=== PATIENT | male | born 1970 | race Hispanic/Latino ===

== ENCOUNTER 2017-11-24 18:56 | Inpatient (IN) | payer MEDICARE ==
[~2017-11-24] VITALS: Ht 167.6 cm; Wt 83.2 kg
[~2017-11-24 18:56] MED LIST: AMIO200T5 PO; ASPI-1181 PO; CALC667C10 PO; CLOP75TA14 PO; ENOX30DI4 SQ; FOLI1TAB61 PO; FURO20TA4 PO; HYDR28CR TP; INSU100V12 SQ; MERO1PIG IV; METO25TA6 PO; MIDO10TA PO; OXYB5TAB10 PO; PANT40SU PO; PRAM0.5T12 PO; SEVE800T7 PO; TRAZ-185 PO; [UNRECOGNIZED DRUG - CODE] IV
[2017-11-24 19:39] LABS: BASOPHILS % (AUTO) 0.5 % (0.0-5.0); HEMATOCRIT 40.5 % (42-54); LYMPHOCYTES % (AUTO) 1.4 % (21.0-51.0); MEAN CORPUSCULAR HEMOGLOBIN 29.6 pg (27.0-33.0); MEAN CORPUSCULAR HGB CONC 33.5 g/dL (32.0-36.0); MEAN CORPUSCULAR VOLUME 88.4 fL (79-99); MONOCYTES % (AUTO) 3.1 % (3.0-13.0); PLATELET COUNT (AUTO) 139 K/uL (130-400); RED BLOOD CELL COUNT(AUTO) 4.58 MIL/uL (4.50-6.20); RED CELL DISTRIBUTION WIDTH 16.4 % (11.0-15.5); WHITE BLOOD COUNT (AUTO) 18.2 K/uL (4.8-10.8)
[2017-11-24 19:51] LABS: CREATININE 7.6 mg/dL (0.5-1.5); POTASSIUM 4.1 mmol/L (3.5-5.1)
[2017-11-24 20:02] LABS: INR 1.14 (0.85-1.15); PARTIAL THROMBOPLASTIN TIME 30.3 SEC (26.3-35.5); PROTHROMBIN TIME 11.9 SEC (9.6-11.6)
[2017-11-24 20:05] LABS: ALBUMIN 3.1 g/dL (3.5-5.0); CREATINE KINASE MB 1.6 ng/mL (0.5-3.6); TOTAL PROTEIN, SERUM 7.3 g/dL (6.0-8.3); TROPONIN I 0.08 ng/mL (0.00-0.06)
[2017-11-24] MEDS ORDERED: VANCOMYCIN 1GM+NS 250ML 250 ML IV ONE (20:11)
[2017-11-24] MEDS ORDERED: ZOSYN 3.375GM+NS 50ML 50 ML IV ONE (20:11)
[2017-11-24] MEDS ORDERED: MIDODRINE HCL 5 MG TABLET ONE (22:02)
[2017-11-24] MEDS ORDERED: SODIUM CHLORIDE 0.9% 250 ML IV ONE (22:03)
[2017-11-24] MEDS ORDERED: ACETAMINOPHEN ELIXIR 325 MG/10.15ML UDCUP ONE (22:26)
[2017-11-24] MEDS ORDERED: SODIUM CHLORIDE 0.9% 1000ML 1,000 ML IV ONE (22:26)
[2017-11-24] MEDS ORDERED: ACETAMINOPHEN 325 MG TAB ONE (22:29)
[2017-11-24] MEDS ORDERED: VANCOMYCIN PROTOCOL PER PHARMACY IV SCH (23:30)
[2017-11-24] MEDS ORDERED: SODIUM CHLORIDE 0.9% 250 ML IV SCH (23:30)
[2017-11-24] MEDS ORDERED: ACETAMINOPHEN 325 MG TAB PO PRN (23:30)
[2017-11-24] MEDS ORDERED: ONDANSETRON HCL MDV 20ML 2 MG/ML VIAL IVP PRN (23:30)
[2017-11-24] MEDS ORDERED: MIDODRINE HCL 5 MG TABLET PO SCH (23:30)
[2017-11-24 23:40] VITALS: BP 101/40
[2017-11-24] MEDS: SODIUM CHLORIDE 0.9% 1000ML 1,000 ML IV SCH (23:55)
[2017-11-25] MEDS ORDERED: MIDO5TAB PO (00:15)
[2017-11-25] MEDS ORDERED: ATOR10 PO (00:15)
[2017-11-25 03:00] VITALS: BP 100/63
[2017-11-25 06:22] LABS: HEMATOCRIT 35.7 % (42-54); MEAN CORPUSCULAR HEMOGLOBIN 29.9 pg (27.0-33.0); MEAN CORPUSCULAR HGB CONC 33.9 g/dL (32.0-36.0); NUCLEATED RED BLOOD CELLS 0.1 % (0.0-0.19); PLATELET COUNT (AUTO) 128 K/uL (130-400); RED BLOOD CELL COUNT(AUTO) 4.05 MIL/uL (4.50-6.20); RED CELL DISTRIBUTION WIDTH 16.6 % (11.0-15.5); WHITE BLOOD COUNT (AUTO) 19.5 K/uL (4.8-10.8)
[2017-11-25] MEDS ORDERED: COMPOUND IV REFRIGERATED 1 EACH IVSOLN MISC PRN (06:30)
[2017-11-25 07:33] LABS: ERYTHROCYTE SEDIMENTATION RATE 20 MM/HR (0-15)
[2017-11-25 07:45] LABS: ALBUMIN 2.5 g/dL (3.5-5.0); BILIRUBIN,TOTAL 1.3 mg/dL (0.2-1.0); POTASSIUM 4.4 mmol/L (3.5-5.1); TOTAL PROTEIN, SERUM 6.3 g/dL (6.0-8.3)
[2017-11-25 07:51] LABS: CREATININE 8.5 mg/dL (0.5-1.5)
[2017-11-25 08:00] VITALS: BP 126/58
[2017-11-25] MEDS: ZOSYN 3.375GM+NS 50ML 50 ML IV SCH ×2 (08:54→21:19)
[2017-11-25] MEDS: FAMOTIDINE/PF 20 MG/2 ML VIAL IV SCH (08:54)
[2017-11-25] MEDS: HEPARIN SODIUM 5000UNIT/ML 1ML VIAL SQ SCH ×2 (09:14→21:27)
[2017-11-25 10:34] LABS: HIGH SENSITIVITY CRP 142.49 mg/L (0.0-3.0)
[2017-11-25 11:00] VITALS: BP_SYST 113; BP_SYST 128; BP_DIAS 53; BP_DIAS 64
[2017-11-25] MEDS: SODIUM CHLORIDE 0.9% 1000ML 1,000 ML IV SCH (13:15)
[2017-11-25 16:00] VITALS: BP 101/70
[2017-11-25 19:00] VITALS: BP 106/63
[2017-11-26 00:26] VITALS: BP 106/62
[2017-11-26 03:51] VITALS: BP 119/60
[2017-11-26 06:06] LABS: MAGNESIUM 2.2 mg/dL (1.80-2.40); PHOSPHORUS 8.6 mg/dL (2.5-4.9); POTASSIUM 5.4 mmol/L (3.5-5.1)
[2017-11-26 06:07] LABS: CREATININE 9.8 mg/dL (0.5-1.5)
[2017-11-26 06:08] LABS: MEAN CORPUSCULAR HEMOGLOBIN 29.5 pg (27.0-33.0); MEAN CORPUSCULAR HGB CONC 33.7 g/dL (32.0-36.0); MEAN CORPUSCULAR VOLUME 87.5 fL (79-99); NUCLEATED RED BLOOD CELLS 0.2 % (0.0-0.19); PLATELET COUNT (AUTO) 110 K/uL (130-400); RED BLOOD CELL COUNT(AUTO) 4.12 MIL/uL (4.50-6.20); RED CELL DISTRIBUTION WIDTH 16.6 % (11.0-15.5); WHITE BLOOD COUNT (AUTO) 13.9 K/uL (4.8-10.8)
[2017-11-26] MEDS: ZOSYN 3.375GM+NS 50ML 50 ML IV SCH ×2 (07:49→20:40)
[2017-11-26] MEDS: FAMOTIDINE/PF 20 MG/2 ML VIAL IV SCH (07:50)
[2017-11-26 08:00] VITALS: BP 118/57
[2017-11-26] MEDS: HEPARIN SODIUM 5000UNIT/ML 1ML VIAL SQ SCH ×2 (08:14→20:46)
[2017-11-26 11:00] VITALS: BP 111/69
[2017-11-26] MEDS ORDERED: 0.9% SODIUM CHLORIDE 250 ML IV BAG IV PRN (13:00)
[2017-11-26] MEDS ORDERED: SODIUM CHLORIDE 0.9% 1000ML 1,000 ML IV PRN (13:00)
[2017-11-26] MEDS ORDERED: MIDODRINE HCL 5 MG TABLET ONE (13:27)
[2017-11-26 16:00] VITALS: BP 114/35
[2017-11-26 19:39] VITALS: BP 98/56
[2017-11-26] MEDS ORDERED: VANCOMYCIN 1.25 GM in SODIUM CHLORIDE 0.9% 250 ML IV SCH (21:00)
[2017-11-27] VITALS (8 sets, daily range): BP systolic 92–169; BP diastolic 58–88
[2017-11-27 05:13] LABS: POTASSIUM 4.6 mmol/L (3.5-5.1)
[2017-11-27 05:14] LABS: HEMATOCRIT 35.2 % (42-54); MEAN CORPUSCULAR HEMOGLOBIN 30.6 pg (27.0-33.0); MEAN CORPUSCULAR HGB CONC 34.9 g/dL (32.0-36.0); MEAN CORPUSCULAR VOLUME 87.7 fL (79-99); NUCLEATED RED BLOOD CELLS 0.1 % (0.0-0.19); PLATELET COUNT (AUTO) 120 K/uL (130-400); RED BLOOD CELL COUNT(AUTO) 4.01 MIL/uL (4.50-6.20); RED CELL DISTRIBUTION WIDTH 16.5 % (11.0-15.5); WHITE BLOOD COUNT (AUTO) 9.2 K/uL (4.8-10.8)
[2017-11-27 05:41] LABS: BAND NEUTROPHILS % (MANUAL) 2 % (0-2); BASOPHILS % (MANUAL) 1 % (0-2); LYMPHOCYTES % (MANUAL) 6 % (22-44); MAN.DIFF COMMENT-IMPRESSION MANUAL DIFFERENTIAL; MONOCYTES % (MANUAL) 10 % (2-9); SEGMENTED NEUTROPHILS % 81 % (40-70)
[2017-11-27 05:43] LABS: PLATELET MORPHOLOGY COMMENT SLIGHTLY DECREASED
[2017-11-27] MEDS: FAMOTIDINE/PF 20 MG/2 ML VIAL IV SCH (08:49)
[2017-11-27] MEDS: HEPARIN SODIUM 5000UNIT/ML 1ML VIAL SQ SCH ×2 (08:49→21:39)
[2017-11-27] MEDS: ZOSYN 3.375GM+NS 50ML 50 ML IV SCH (08:49)
[2017-11-27] MEDS ORDERED: COMPOUND PO MISCELLANEOUS 1 EACH MISC MISC PRN ×2 (13:30→14:15)
[2017-11-27] MEDS: VANCOMYCIN 250MG/5ML ORAL SOLUTION 40ML PO SCH ×4 (14:32→21:36)
[2017-11-27] MEDS: PHARMACY COMMUNICATION MISC SCH (21:36)
[2017-11-28] MEDS: VANCOMYCIN 250MG/5ML ORAL SOLUTION 40ML PO SCH ×6 (03:38→14:09)
[2017-11-28] MEDS: PHARMACY COMMUNICATION MISC SCH (03:45)
[2017-11-28 04:03] VITALS: BP 101/76
[2017-11-28 05:14] LABS: BASOPHILS % (AUTO) 0.9 % (0.0-5.0); EOSINOPHILS % (AUTO) 1.5 % (0.0-8.0); HEMATOCRIT 37.4 % (42-54); MEAN CORPUSCULAR HEMOGLOBIN 29.3 pg (27.0-33.0); MEAN CORPUSCULAR HGB CONC 33.5 g/dL (32.0-36.0); MEAN CORPUSCULAR VOLUME 87.6 fL (79-99); MONOCYTES % (AUTO) 11.2 % (3.0-13.0); NEUTROPHILS % (AUTO) 81.4 % (40.0-77.0); PLATELET COUNT (AUTO) 134 K/uL (130-400); RED BLOOD CELL COUNT(AUTO) 4.26 MIL/uL (4.50-6.20); RED CELL DISTRIBUTION WIDTH 16.5 % (11.0-15.5)
[2017-11-28 05:28] LABS: POTASSIUM 4.7 mmol/L (3.5-5.1)
[2017-11-28 05:32] LABS: CREATININE 10.5 mg/dL (0.5-1.5)
[2017-11-28 07:00] VITALS: BP 114/50
[2017-11-28] MEDS ORDERED: 0.9% SODIUM CHLORIDE 250 ML IV BAG IV PRN (07:15)
[2017-11-28] MEDS ORDERED: SODIUM CHLORIDE 0.9% 1000ML 1,000 ML IV PRN (07:15)
[2017-11-28] MEDS ORDERED: ALBUMIN (HUMAN) 25% 100 ML IV PRN (07:15)
[2017-11-28] MEDS: FAMOTIDINE/PF 20 MG/2 ML VIAL IV SCH (08:42)
[2017-11-28] MEDS: HEPARIN SODIUM 5000UNIT/ML 1ML VIAL SQ SCH (08:43)
[2017-11-28 12:00] VITALS: BP 99/70
== END 2017-11-28 15:25 | disposition home or self-care (01) | DRG 871 ==
LOC: EDH 18:56 → EDHIP 21:46 → 3BH 23:14
PROVIDERS: ADMIT Internal Medicine Nephrology; ATTEND Internal Medicine Nephrology
PROC: 5A1D70Z Performance of Urinary Filtration, Intermittent, Less than 6 Hours Per Day (ICD-10-PCS; principal; 2017-11-26)
PROC: 5A1D70Z Performance of Urinary Filtration, Intermittent, Less than 6 Hours Per Day (ICD-10-PCS; 2017-11-28)
DX: A41.9 Sepsis, unspecified organism (principal); N18.6 End stage renal disease; L03.115 Cellulitis of right lower limb; A04.72 Enterocolitis due to Clostridium difficile, not specified as recurrent; I13.2 Hypertensive heart and chronic kidney disease with heart failure and with stage 5 chronic kidney disease, or end stage renal disease; D64.9 Anemia, unspecified; E11.21 Type 2 diabetes mellitus with diabetic nephropathy; E11.22 Type 2 diabetes mellitus with diabetic chronic kidney disease; E11.51 Type 2 diabetes mellitus with diabetic peripheral angiopathy without gangrene; E78.5 Hyperlipidemia, unspecified; I25.10 Atherosclerotic heart disease of native coronary artery without angina pectoris; I25.5 Ischemic cardiomyopathy; I50.9 Heart failure, unspecified; Z99.2 Dependence on renal dialysis; Z95.1 Presence of aortocoronary bypass graft; Z91.19 Patient's noncompliance with other medical treatment and regimen; Z89.512 Acquired absence of left leg below knee; Z87.891 Personal history of nicotine dependence; Z83.3 Family history of diabetes mellitus; Z82.49 Family history of ischemic heart disease and other diseases of the circulatory system
CPT/HCPCS: 36415; 71045; 80048; 80053; 80202; 82550; 82553; 82948; 83605; 83735; 83874; 84100; 84484; 85025; 85027; 85610; 85651; 85730; 86141; 87040; 87507; 87633; 90935; 93005; 93971; J1644; J2543; J3370; J3490; J7030; P9046

== ENCOUNTER 2018-03-28 13:00 | Outpatient (CLI) | payer MEDICARE ==
[~2018-03-28 13:00] MED LIST changes: +ATOR10 PO; -CALC667C10 PO; -CLOP75TA14 PO; -ENOX30DI4 SQ; -FOLI1TAB61 PO; -FURO20TA4 PO; -HYDR28CR TP; -INSU100V12 SQ; -MERO1PIG IV; -METO25TA6 PO; -MIDO10TA PO; +MIDO5TAB PO; -PANT40SU PO; -[UNRECOGNIZED DRUG - CODE] IV
[2018-03-28 14:09] VITALS: BP 127/52
== END 2018-03-28 14:18 | disposition home or self-care (01) ==
LOC: WHH 13:00
PROVIDERS: ATTEND Family Medicine
DX: E11.621 Type 2 diabetes mellitus with foot ulcer (principal); L97.511 Non-pressure chronic ulcer of other part of right foot limited to breakdown of skin; I25.10 Atherosclerotic heart disease of native coronary artery without angina pectoris; E11.22 Type 2 diabetes mellitus with diabetic chronic kidney disease; I13.2 Hypertensive heart and chronic kidney disease with heart failure and with stage 5 chronic kidney disease, or end stage renal disease; N18.6 End stage renal disease; I50.9 Heart failure, unspecified; I89.0 Lymphedema, not elsewhere classified; E78.2 Mixed hyperlipidemia; I25.2 Old myocardial infarction; E11.69 Type 2 diabetes mellitus with other specified complication; M86.8X7 Other osteomyelitis, ankle and foot; M19.071 Primary osteoarthritis, right ankle and foot; E11.40 Type 2 diabetes mellitus with diabetic neuropathy, unspecified; E11.51 Type 2 diabetes mellitus with diabetic peripheral angiopathy without gangrene; E11.21 Type 2 diabetes mellitus with diabetic nephropathy; I87.2 Venous insufficiency (chronic) (peripheral); Z95.1 Presence of aortocoronary bypass graft; Z87.891 Personal history of nicotine dependence; Z89.512 Acquired absence of left leg below knee; Z79.899 Other long term (current) drug therapy; Z79.4 Long term (current) use of insulin; Z99.2 Dependence on renal dialysis
CPT/HCPCS: G0463

== ENCOUNTER 2018-06-01 11:17 | Inpatient (IN) | payer MEDICARE ==
[~2018-06-01] VITALS: Ht 167.6 cm; Wt 91.0 kg
[2018-06-01 11:55] LABS: BASOPHILS % (AUTO) 0.4 % (0.0-5.0); HEMATOCRIT 47.4 % (42-54); LYMPHOCYTES % (AUTO) 2.5 % (21.0-51.0); MEAN CORPUSCULAR HEMOGLOBIN 28.5 pg (27.0-33.0); MEAN CORPUSCULAR HGB CONC 32.6 g/dL (32.0-36.0); MEAN CORPUSCULAR VOLUME 87.4 fL (79-99); NEUTROPHILS % (AUTO) 85.1 % (40.0-77.0); PLATELET COUNT (AUTO) 148 K/uL (130-400); RED BLOOD CELL COUNT(AUTO) 5.43 MIL/uL (4.50-6.20); RED CELL DISTRIBUTION WIDTH 17.1 % (11.0-15.5); WHITE BLOOD COUNT (AUTO) 8.7 K/uL (4.8-10.8)
[2018-06-01 12:03] LABS: ALBUMIN 1.5 g/dL (3.5-5.0); BILIRUBIN,TOTAL 0.6 mg/dL (0.2-1.0); POTASSIUM 4.5 mmol/L (3.5-5.1); TOTAL PROTEIN, SERUM 5.4 g/dL (6.0-8.3)
[2018-06-01] MEDS ORDERED: ALBUTEROL SULFATE 0.083% 2.5 MG/3 ML INH IH ONE (12:10)
[2018-06-01 12:17] LABS: CREATININE 8.2 mg/dL (0.5-1.5)
[2018-06-01] MEDS ORDERED: ZOSYN 3.375GM+NS 50ML 50 ML IV ONE (13:11)
[2018-06-01] MEDS ORDERED: ACETAMINOPHEN 325 MG TAB PO PRN (15:00)
[2018-06-01] MEDS ORDERED: VANCOMYCIN 1GM+NS 250ML 250 ML IV SCH (15:30)
[2018-06-01] MEDS: SEVELAMER HCL 800 MG TABLET PO SCH (17:00)
[2018-06-01] MEDS: IPRATROPIUM/ALBUTEROL SULFATE 3 ML SOLUTION IH SCH ×2 (18:07→23:28)
[2018-06-01] MEDS ORDERED: MIDODRINE HCL 5 MG TABLET ONE (20:21)
[2018-06-01] MEDS: OXYBUTYNIN CHLORIDE 5 MG TABLET PO SCH (21:00)
[2018-06-01] MEDS ORDERED: PRAMIPEXOLE DI-HCL 0.25 MG TABLET PO PRN (21:00)
[2018-06-01] MEDS ORDERED: FAMOTIDINE 20MG TAB 20 MG TAB PO SCH (21:00)
[2018-06-01] MEDS: BENZONATATE 100 MG CAPSULE PO SCH (21:00)
[2018-06-01] MEDS: HEPARIN SODIUM 5000UNIT/ML 1ML VIAL SQ SCH (21:00)
[2018-06-01] MEDS: ZOSYN 3.375GM+NS 50ML 50 ML IV SCH (21:00)
[2018-06-01] MEDS ORDERED: MIDODRINE HCL 5 MG TABLET PO SCH ×2 (21:00)
[2018-06-01] MEDS: ATORVASTATIN CALCIUM 10 MG TABLET PO SCH (21:00)
[2018-06-01] MEDS ORDERED: ATORVASTATIN CALCIUM 10 MG TABLET ONE (21:24)
[2018-06-01] MEDS ORDERED: FAMOTIDINE 20MG TAB 20 MG TAB ONE (21:24)
[2018-06-01] MEDS ORDERED: HEPARIN SODIUM 5000UNIT/ML 1ML VIAL ONE (21:25)
[2018-06-01] MEDS ORDERED: BENZONATATE 100 MG CAPSULE PO ONE (21:25)
[2018-06-01] MEDS ORDERED: VANCOMYCIN 1GM+NS 250ML 250 ML IV ONE (21:25)
[2018-06-01 22:50] VITALS: BP 89/55
[2018-06-02 04:00] VITALS: BP 78/54
[2018-06-02 05:38] LABS: HEMATOCRIT 38.5 % (42-54); MEAN CORPUSCULAR HEMOGLOBIN 27.4 pg (27.0-33.0); MEAN CORPUSCULAR HGB CONC 31.8 g/dL (32.0-36.0); MEAN CORPUSCULAR VOLUME 86.1 fL (79-99); NUCLEATED RED BLOOD CELLS 0.1 % (0.0-0.19); PLATELET COUNT (AUTO) 125 K/uL (130-400); RED BLOOD CELL COUNT(AUTO) 4.47 MIL/uL (4.50-6.20); RED CELL DISTRIBUTION WIDTH 16.4 % (11.0-15.5); WHITE BLOOD COUNT (AUTO) 7.6 K/uL (4.8-10.8)
[2018-06-02 05:55] LABS: MAGNESIUM 2.3 mg/dL (1.80-2.40); PHOSPHORUS 8.9 mg/dL (2.5-4.9); URIC ACID 6.2 mg/dL (2.6-7.2)
[2018-06-02 05:57] LABS: CREATININE 9.1 mg/dL (0.5-1.5)
[2018-06-02] MEDS: IPRATROPIUM/ALBUTEROL SULFATE 3 ML SOLUTION IH SCH ×3 (06:43→23:35)
[2018-06-02 08:00] VITALS: BP 90/55
[2018-06-02] MEDS: SEVELAMER HCL 800 MG TABLET PO SCH ×3 (08:10→19:17)
[2018-06-02] MEDS: HEPARIN SODIUM 5000UNIT/ML 1ML VIAL SQ SCH ×2 (09:00→21:00)
[2018-06-02] MEDS: ASPIRIN 81 MG EC TAB PO SCH (09:33)
[2018-06-02] MEDS: MIDODRINE HCL 5 MG TABLET PO SCH ×3 (09:33→21:40)
[2018-06-02] MEDS: ZOSYN 3.375GM+NS 50ML 50 ML IV SCH ×2 (09:33→21:40)
[2018-06-02] MEDS: OXYBUTYNIN CHLORIDE 5 MG TABLET PO SCH ×3 (09:34→21:41)
[2018-06-02] MEDS: FOLIC ACID/VITAMIN B COMP W-C 1 MG CAPSULE PO SCH (09:34)
[2018-06-02] MEDS: BENZONATATE 100 MG CAPSULE PO SCH ×3 (09:34→21:00)
[2018-06-02] MEDS: AMIODARONE HCL 200 MG TABLET PO SCH (09:34)
[2018-06-02] MEDS: HYDROCODONE/ACETAMINOPHEN 5/325 MG TAB PO PRN (09:45)
[2018-06-02] MEDS ORDERED: SODIUM CHLORIDE 0.9% 1000ML 1,000 ML IV PRN (11:45)
[2018-06-02] MEDS ORDERED: 0.9% SODIUM CHLORIDE 250 ML IV BAG IV PRN (11:45)
[2018-06-02 12:00] VITALS: BP 80/44
[2018-06-02] MEDS: ALBUMIN (HUMAN) 25% 50 ML IV PRN ×2 (14:27→14:28)
[2018-06-02] MEDS: ALBUMIN (HUMAN) 25% 100 ML IV PRN (14:28)
[2018-06-02 16:00] VITALS: BP 83/51
[2018-06-02 19:10] LABS: TROPONIN I 1.9 ng/mL (0.00-0.06)
[2018-06-02 19:15] VITALS: BP 79/46
[2018-06-02 19:20] VITALS: BP 82/46
[2018-06-02] MEDS: ATORVASTATIN CALCIUM 10 MG TABLET PO SCH (21:41)
[2018-06-02 21:44] LABS: CREATININE 7.2 mg/dL (0.5-1.5); MAGNESIUM 2.3 mg/dL (1.80-2.40); POTASSIUM 4.3 mmol/L (3.5-5.1)
[2018-06-03 04:15] VITALS: BP 85/37
[2018-06-03 05:09] LABS: HEMATOCRIT 39.2 % (42-54); MEAN CORPUSCULAR HEMOGLOBIN 28.4 pg (27.0-33.0); MEAN CORPUSCULAR HGB CONC 32.8 g/dL (32.0-36.0); MEAN CORPUSCULAR VOLUME 86.6 fL (79-99); NUCLEATED RED BLOOD CELLS 0.2 % (0.0-0.19); PLATELET COUNT (AUTO) 147 K/uL (130-400); RED BLOOD CELL COUNT(AUTO) 4.53 MIL/uL (4.50-6.20); RED CELL DISTRIBUTION WIDTH 16.8 % (11.0-15.5); WHITE BLOOD COUNT (AUTO) 6.9 K/uL (4.8-10.8)
[2018-06-03 06:08] LABS: TROPONIN I 1.36 ng/mL (0.00-0.06)
[2018-06-03] MEDS: IPRATROPIUM/ALBUTEROL SULFATE 3 ML SOLUTION IH SCH ×4 (06:37→23:07)
[2018-06-03 07:12] LABS: CREATININE 7.8 mg/dL (0.5-1.5)
[2018-06-03 08:00] VITALS: BP 76/40
[2018-06-03] MEDS: HEPARIN SODIUM 5000UNIT/ML 1ML VIAL SQ SCH ×2 (09:00→21:00)
[2018-06-03] MEDS: ZOSYN 3.375GM+NS 50ML 50 ML IV SCH ×2 (09:02→21:05)
[2018-06-03] MEDS: FOLIC ACID/VITAMIN B COMP W-C 1 MG CAPSULE PO SCH (09:03)
[2018-06-03] MEDS: OXYBUTYNIN CHLORIDE 5 MG TABLET PO SCH ×3 (09:03→21:05)
[2018-06-03] MEDS: MIDODRINE HCL 5 MG TABLET PO SCH ×3 (09:03→21:05)
[2018-06-03] MEDS: AMIODARONE HCL 200 MG TABLET PO SCH (09:04)
[2018-06-03] MEDS: SEVELAMER HCL 800 MG TABLET PO SCH ×3 (09:04→17:00)
[2018-06-03] MEDS: HYDROCODONE/ACETAMINOPHEN 5/325 MG TAB PO PRN (09:05)
[2018-06-03] MEDS: ASPIRIN 81 MG EC TAB PO SCH (09:05)
[2018-06-03] MEDS: BENZONATATE 100 MG CAPSULE PO SCH ×3 (09:08→21:05)
[2018-06-03 12:00] VITALS: BP 87/43
[2018-06-03 13:03] LABS: TROPONIN I 1.4 ng/mL (0.00-0.06)
[2018-06-03 16:00] VITALS: BP 92/38
[2018-06-03] MEDS: VANCOMYCIN 1GM+NS 250ML 250 ML IV SCH (18:36)
[2018-06-03] MEDS: ALBUMIN (HUMAN) 25% 100 ML IV PRN ×2 (18:41→18:42)
[2018-06-03 19:00] VITALS: BP 97/50
[2018-06-03] MEDS: ATORVASTATIN CALCIUM 10 MG TABLET PO SCH (21:05)
[2018-06-03 23:45] VITALS: BP 97/54
[2018-06-04] VITALS (8 sets, daily range): BP systolic 85–97; BP diastolic 40–74
[2018-06-04 05:42] LABS: HEMATOCRIT 41.5 % (42-54); MEAN CORPUSCULAR HEMOGLOBIN 27.7 pg (27.0-33.0); MEAN CORPUSCULAR HGB CONC 31.9 g/dL (32.0-36.0); MEAN CORPUSCULAR VOLUME 86.7 fL (79-99); NUCLEATED RED BLOOD CELLS 0.1 % (0.0-0.19); PLATELET COUNT (AUTO) 121 K/uL (130-400); RED BLOOD CELL COUNT(AUTO) 4.79 MIL/uL (4.50-6.20); RED CELL DISTRIBUTION WIDTH 16.6 % (11.0-15.5); WHITE BLOOD COUNT (AUTO) 6.4 K/uL (4.8-10.8)
[2018-06-04 05:51] LABS: CREATININE 6.1 mg/dL (0.5-1.5); POTASSIUM 3.7 mmol/L (3.5-5.1)
[2018-06-04] MEDS: IPRATROPIUM/ALBUTEROL SULFATE 3 ML SOLUTION IH SCH ×4 (06:39→23:41)
[2018-06-04] MEDS: HEPARIN SODIUM 5000UNIT/ML 1ML VIAL SQ SCH ×2 (09:00→20:31)
[2018-06-04] MEDS: ZOSYN 3.375GM+NS 50ML 50 ML IV SCH ×2 (09:13→20:31)
[2018-06-04] MEDS: MIDODRINE HCL 5 MG TABLET PO SCH ×3 (09:14→20:30)
[2018-06-04] MEDS: FOLIC ACID/VITAMIN B COMP W-C 1 MG CAPSULE PO SCH (09:14)
[2018-06-04] MEDS: BENZONATATE 100 MG CAPSULE PO SCH ×3 (09:14→20:30)
[2018-06-04] MEDS: ASPIRIN 81 MG EC TAB PO SCH (09:14)
[2018-06-04] MEDS: OXYBUTYNIN CHLORIDE 5 MG TABLET PO SCH ×3 (09:14→20:30)
[2018-06-04] MEDS: AMIODARONE HCL 200 MG TABLET PO SCH (09:14)
[2018-06-04] MEDS: SEVELAMER HCL 800 MG TABLET PO SCH ×3 (09:14→17:31)
[2018-06-04] MEDS: BUDESONIDE 0.5 MG/2 ML INH IH SCH (18:32)
[2018-06-04] MEDS ORDERED: SODIUM CHLORIDE 3% FOR INHALATION 4 ML/AMP VIAL.NEB IH ONE (18:53)
[2018-06-04] MEDS: ATORVASTATIN CALCIUM 10 MG TABLET PO SCH (20:30)
[2018-06-04] MEDS: METHYLPREDNISOLONE SOD SUCC 40MG/ML 1ML IVP SCH (20:31)
[2018-06-05 03:35] VITALS: BP 108/69
[2018-06-05 05:13] LABS: HEMATOCRIT 44.9 % (42-54); MEAN CORPUSCULAR HGB CONC 32.3 g/dL (32.0-36.0); MEAN CORPUSCULAR VOLUME 86.8 fL (79-99); NUCLEATED RED BLOOD CELLS 0.1 % (0.0-0.19); PLATELET COUNT (AUTO) 160 K/uL (130-400); RED BLOOD CELL COUNT(AUTO) 5.17 MIL/uL (4.50-6.20); RED CELL DISTRIBUTION WIDTH 16.8 % (11.0-15.5); WHITE BLOOD COUNT (AUTO) 6.3 K/uL (4.8-10.8)
[2018-06-05 05:32] LABS: CREATININE 7.4 mg/dL (0.5-1.5); PHOSPHORUS 7.1 mg/dL (2.5-4.9); POTASSIUM 4.7 mmol/L (3.5-5.1)
[2018-06-05] MEDS: IPRATROPIUM/ALBUTEROL SULFATE 3 ML SOLUTION IH SCH ×4 (06:12→23:21)
[2018-06-05] MEDS: BUDESONIDE 0.5 MG/2 ML INH IH SCH ×2 (06:12→18:15)
[2018-06-05] MEDS: MIDODRINE HCL 5 MG TABLET PO SCH ×3 (07:22→21:04)
[2018-06-05 08:00] VITALS: BP 98/46
[2018-06-05] MEDS: HEPARIN SODIUM 5000UNIT/ML 1ML VIAL SQ SCH ×2 (09:00→21:06)
[2018-06-05 11:00] VITALS: BP 117/69
[2018-06-05] MEDS: SEVELAMER HCL 800 MG TABLET PO SCH ×3 (11:27→17:15)
[2018-06-05] MEDS: OXYBUTYNIN CHLORIDE 5 MG TABLET PO SCH ×3 (11:27→21:05)
[2018-06-05] MEDS: BENZONATATE 100 MG CAPSULE PO SCH ×3 (11:28→21:05)
[2018-06-05] MEDS: AMIODARONE HCL 200 MG TABLET PO SCH (11:28)
[2018-06-05] MEDS: METHYLPREDNISOLONE SOD SUCC 40MG/ML 1ML IVP SCH ×2 (11:28→21:06)
[2018-06-05] MEDS: ASPIRIN 81 MG EC TAB PO SCH (11:28)
[2018-06-05] MEDS: FOLIC ACID/VITAMIN B COMP W-C 1 MG CAPSULE PO SCH (11:28)
[2018-06-05] MEDS: ZOSYN 3.375GM+NS 50ML 50 ML IV SCH ×2 (11:29→22:23)
[2018-06-05 13:06] LABS: INR 1.2 (0.85-1.15); PROTHROMBIN TIME 12.6 SEC (9.6-11.6)
[2018-06-05] MEDS: VANCOMYCIN 1GM+NS 250ML 250 ML IV SCH (15:36)
[2018-06-05 16:00] VITALS: BP 78/32
[2018-06-05 19:30] VITALS: BP 104/64
[2018-06-05] MEDS: ATORVASTATIN CALCIUM 10 MG TABLET PO SCH (21:04)
[2018-06-05 23:15] VITALS: BP 130/62
[2018-06-06 03:35] VITALS: BP 119/84
[2018-06-06] MEDS: BUDESONIDE 0.5 MG/2 ML INH IH SCH (06:26)
[2018-06-06] MEDS: IPRATROPIUM/ALBUTEROL SULFATE 3 ML SOLUTION IH SCH (06:27)
[2018-06-06 08:18] VITALS: BP 140/88
[2018-06-06] MEDS: SEVELAMER HCL 800 MG TABLET PO SCH (08:51)
[2018-06-06] MEDS: BENZONATATE 100 MG CAPSULE PO SCH (08:51)
[2018-06-06] MEDS: MIDODRINE HCL 5 MG TABLET PO SCH (08:52)
[2018-06-06] MEDS: HEPARIN SODIUM 5000UNIT/ML 1ML VIAL SQ SCH (08:52)
[2018-06-06] MEDS: FOLIC ACID/VITAMIN B COMP W-C 1 MG CAPSULE PO SCH (08:52)
[2018-06-06] MEDS: OXYBUTYNIN CHLORIDE 5 MG TABLET PO SCH (08:52)
[2018-06-06] MEDS: AMIODARONE HCL 200 MG TABLET PO SCH (08:52)
[2018-06-06] MEDS: ASPIRIN 81 MG EC TAB PO SCH (08:52)
[2018-06-06] MEDS: METHYLPREDNISOLONE SOD SUCC 40MG/ML 1ML IVP SCH (08:53)
== END 2018-06-06 09:45 | DRG 871 ==
LOC: EDH 11:17 → EDHIP 14:48 → 3BH 20:32
PROVIDERS: ADMIT Internal Medicine; ATTEND Internal Medicine
PROC: 5A1D70Z Performance of Urinary Filtration, Intermittent, Less than 6 Hours Per Day (ICD-10-PCS; principal; 2018-06-02)
PROC: 5A1D70Z Performance of Urinary Filtration, Intermittent, Less than 6 Hours Per Day (ICD-10-PCS; 2018-06-03)
PROC: 5A1D70Z Performance of Urinary Filtration, Intermittent, Less than 6 Hours Per Day (ICD-10-PCS; 2018-06-05)
PROC: 02HV33Z Insertion of Infusion Device into Superior Vena Cava, Percutaneous Approach (ICD-10-PCS; 2018-06-05)
DX: A41.9 Sepsis, unspecified organism (principal); J18.9 Pneumonia, unspecified organism; N18.6 End stage renal disease; J96.91 Respiratory failure, unspecified with hypoxia; I13.2 Hypertensive heart and chronic kidney disease with heart failure and with stage 5 chronic kidney disease, or end stage renal disease; J98.11 Atelectasis; I25.10 Atherosclerotic heart disease of native coronary artery without angina pectoris; E11.22 Type 2 diabetes mellitus with diabetic chronic kidney disease; I25.5 Ischemic cardiomyopathy; D64.9 Anemia, unspecified; D89.9 Disorder involving the immune mechanism, unspecified; E11.21 Type 2 diabetes mellitus with diabetic nephropathy; E11.51 Type 2 diabetes mellitus with diabetic peripheral angiopathy without gangrene; E66.9 Obesity, unspecified; E78.5 Hyperlipidemia, unspecified; I48.91 Unspecified atrial fibrillation; I50.9 Heart failure, unspecified; Y95 Nosocomial condition; R53.81 Other malaise; J20.9 Acute bronchitis, unspecified; Z68.32 Body mass index [BMI] 32.0-32.9, adult; Z88.5 Allergy status to narcotic agent; Z95.1 Presence of aortocoronary bypass graft; I25.2 Old myocardial infarction; Z99.2 Dependence on renal dialysis; Z95.810 Presence of automatic (implantable) cardiac defibrillator; Z91.19 Patient's noncompliance with other medical treatment and regimen; Z89.512 Acquired absence of left leg below knee; Z87.891 Personal history of nicotine dependence; Z83.3 Family history of diabetes mellitus; Z82.5 Family history of asthma and other chronic lower respiratory diseases; Z82.49 Family history of ischemic heart disease and other diseases of the circulatory system; Z82.0 Family history of epilepsy and other diseases of the nervous system
CPT/HCPCS: 36415; 71045; 71250; 80048; 80053; 80202; 82550; 82948; 83605; 83735; 83874; 84100; 84484; 84550; 85025; 85027; 85610; 87040; 87071; 87205; 87633; 90935; 93005; 93306; 94640; 94664; 99291; C1894; G0378; J1644; J2543; J2920; J3370; P9046; P9047

== ENCOUNTER → 2018-07-01 | Outpatient (CLI) | payer MEDICARE ==
[~2018-07-01] MED LIST changes: +HONEY 1 APPL/ML TUBE TP ONE; +LIDOCAINE/PRILOCAINE CREAM 5GM TUBE TP ONE; -MIDO5TAB PO; -TRAZ-185 PO
[2018-07-01 14:38] VITALS: BP 92/30
[2018-07-02 08:27] LABS: VITAMIN D, 25-HYDROXY 7.6 ng/mL (30.0-100.0)
== END | disposition home or self-care (01) ==
LOC: WHH 13:00
PROVIDERS: ATTEND Family Medicine
DX: T87.89 Other complications of amputation stump (principal); E11.622 Type 2 diabetes mellitus with other skin ulcer; L89.890 Pressure ulcer of other site, unstageable; L97.822 Non-pressure chronic ulcer of other part of left lower leg with fat layer exposed; I25.10 Atherosclerotic heart disease of native coronary artery without angina pectoris; E11.22 Type 2 diabetes mellitus with diabetic chronic kidney disease; I13.2 Hypertensive heart and chronic kidney disease with heart failure and with stage 5 chronic kidney disease, or end stage renal disease; N18.6 End stage renal disease; I50.9 Heart failure, unspecified; I89.0 Lymphedema, not elsewhere classified; E78.2 Mixed hyperlipidemia; I25.2 Old myocardial infarction; M19.071 Primary osteoarthritis, right ankle and foot; E11.51 Type 2 diabetes mellitus with diabetic peripheral angiopathy without gangrene; E11.21 Type 2 diabetes mellitus with diabetic nephropathy; E66.01 Morbid (severe) obesity due to excess calories; I87.2 Venous insufficiency (chronic) (peripheral); I48.91 Unspecified atrial fibrillation; Z95.1 Presence of aortocoronary bypass graft; Z87.891 Personal history of nicotine dependence; Z99.2 Dependence on renal dialysis; Z88.5 Allergy status to narcotic agent; Z68.32 Body mass index [BMI] 32.0-32.9, adult; Y83.5 Amputation of limb(s) as the cause of abnormal reaction of the patient, or of later complication, without mention of misadventure at the time of the procedure
CPT/HCPCS: 11042; 36415; 82306; 82948; 84134; 85651; 86140; 87070; 87077; 87186; A4450; A6196; J3490

== ENCOUNTER → 2018-07-08 | Outpatient (CLI) | payer MEDICARE ==
[~2018-07-08] MED LIST changes: -HONEY 1 APPL/ML TUBE TP ONE; +LIDOCAINE HCL 2% JELLY 5 ML TP ONE
[2018-07-08 16:12] VITALS: BP 103/49
== END | disposition home or self-care (01) ==
LOC: WHH 13:00
PROVIDERS: ATTEND Family Medicine
DX: E11.622 Type 2 diabetes mellitus with other skin ulcer (principal); L98.492 Non-pressure chronic ulcer of skin of other sites with fat layer exposed; L89.890 Pressure ulcer of other site, unstageable; I25.10 Atherosclerotic heart disease of native coronary artery without angina pectoris; E11.22 Type 2 diabetes mellitus with diabetic chronic kidney disease; I13.2 Hypertensive heart and chronic kidney disease with heart failure and with stage 5 chronic kidney disease, or end stage renal disease; N18.6 End stage renal disease; I50.9 Heart failure, unspecified; I89.0 Lymphedema, not elsewhere classified; E78.2 Mixed hyperlipidemia; I25.2 Old myocardial infarction; E11.69 Type 2 diabetes mellitus with other specified complication; M86.8X7 Other osteomyelitis, ankle and foot; M19.071 Primary osteoarthritis, right ankle and foot; E11.40 Type 2 diabetes mellitus with diabetic neuropathy, unspecified; E11.51 Type 2 diabetes mellitus with diabetic peripheral angiopathy without gangrene; E11.21 Type 2 diabetes mellitus with diabetic nephropathy; I87.2 Venous insufficiency (chronic) (peripheral); E66.01 Morbid (severe) obesity due to excess calories; I48.91 Unspecified atrial fibrillation; Z95.1 Presence of aortocoronary bypass graft; Z95.810 Presence of automatic (implantable) cardiac defibrillator; Z87.891 Personal history of nicotine dependence; Z89.512 Acquired absence of left leg below knee; Z79.899 Other long term (current) drug therapy; Z79.4 Long term (current) use of insulin; Z99.2 Dependence on renal dialysis; Z88.5 Allergy status to narcotic agent; Z68.32 Body mass index [BMI] 32.0-32.9, adult
CPT/HCPCS: 11042; A6207; J3490

== ENCOUNTER → 2018-07-15 | Outpatient (CLI) | payer MEDICARE ==
[~2018-07-15] MED LIST changes: -LIDOCAINE HCL 2% JELLY 5 ML TP ONE
[2018-07-15 16:24] VITALS: BP 106/61
== END | disposition home or self-care (01) ==
LOC: WHH 13:00
PROVIDERS: ATTEND Family Medicine
DX: E11.622 Type 2 diabetes mellitus with other skin ulcer (principal); L98.492 Non-pressure chronic ulcer of skin of other sites with fat layer exposed; L89.890 Pressure ulcer of other site, unstageable; I25.10 Atherosclerotic heart disease of native coronary artery without angina pectoris; E11.22 Type 2 diabetes mellitus with diabetic chronic kidney disease; I13.2 Hypertensive heart and chronic kidney disease with heart failure and with stage 5 chronic kidney disease, or end stage renal disease; N18.6 End stage renal disease; I50.9 Heart failure, unspecified; I89.0 Lymphedema, not elsewhere classified; E78.2 Mixed hyperlipidemia; I25.2 Old myocardial infarction; E11.69 Type 2 diabetes mellitus with other specified complication; M86.8X7 Other osteomyelitis, ankle and foot; M19.071 Primary osteoarthritis, right ankle and foot; E11.40 Type 2 diabetes mellitus with diabetic neuropathy, unspecified; E11.51 Type 2 diabetes mellitus with diabetic peripheral angiopathy without gangrene; E11.21 Type 2 diabetes mellitus with diabetic nephropathy; I87.2 Venous insufficiency (chronic) (peripheral); E66.01 Morbid (severe) obesity due to excess calories; I48.91 Unspecified atrial fibrillation; Z89.512 Acquired absence of left leg below knee; Z89.511 Acquired absence of right leg below knee; Z95.1 Presence of aortocoronary bypass graft; Z95.810 Presence of automatic (implantable) cardiac defibrillator; Z87.891 Personal history of nicotine dependence; Z79.899 Other long term (current) drug therapy; Z88.5 Allergy status to narcotic agent; Z68.32 Body mass index [BMI] 32.0-32.9, adult; Z99.2 Dependence on renal dialysis; Z79.4 Long term (current) use of insulin
CPT/HCPCS: 11042; 82948; J3490

== ENCOUNTER → 2018-07-22 | Outpatient (CLI) | payer MEDICARE ==
[2018-07-22 15:24] VITALS: BP 92/50
== END | disposition home or self-care (01) ==
LOC: WHH 13:00
PROVIDERS: ATTEND Family Medicine
DX: E11.622 Type 2 diabetes mellitus with other skin ulcer (principal); L89.893 Pressure ulcer of other site, stage 3; L97.822 Non-pressure chronic ulcer of other part of left lower leg with fat layer exposed; I25.10 Atherosclerotic heart disease of native coronary artery without angina pectoris; I89.0 Lymphedema, not elsewhere classified; E78.2 Mixed hyperlipidemia; E66.01 Morbid (severe) obesity due to excess calories; I25.2 Old myocardial infarction; E11.69 Type 2 diabetes mellitus with other specified complication; M86.8X7 Other osteomyelitis, ankle and foot; M19.071 Primary osteoarthritis, right ankle and foot; E11.21 Type 2 diabetes mellitus with diabetic nephropathy; E11.40 Type 2 diabetes mellitus with diabetic neuropathy, unspecified; E11.51 Type 2 diabetes mellitus with diabetic peripheral angiopathy without gangrene; I87.2 Venous insufficiency (chronic) (peripheral); I48.91 Unspecified atrial fibrillation; E11.22 Type 2 diabetes mellitus with diabetic chronic kidney disease; I13.2 Hypertensive heart and chronic kidney disease with heart failure and with stage 5 chronic kidney disease, or end stage renal disease; N18.6 End stage renal disease; I50.9 Heart failure, unspecified; Z89.511 Acquired absence of right leg below knee; Z89.512 Acquired absence of left leg below knee; Z87.891 Personal history of nicotine dependence; Z95.1 Presence of aortocoronary bypass graft; Z95.810 Presence of automatic (implantable) cardiac defibrillator; Z79.899 Other long term (current) drug therapy; Z68.32 Body mass index [BMI] 32.0-32.9, adult; Z99.2 Dependence on renal dialysis; Z79.4 Long term (current) use of insulin
CPT/HCPCS: 11042; J3490

== ENCOUNTER → 2018-07-25 | Outpatient (CLI) | payer MEDICARE ==
[~2018-07-25] MED LIST changes: -LIDOCAINE/PRILOCAINE CREAM 5GM TUBE TP ONE
== END | disposition home or self-care (01) ==
LOC: RAH 12:50
PROVIDERS: ATTEND Family Medicine
DX: M86.652 Other chronic osteomyelitis, left thigh (principal); E11.9 Type 2 diabetes mellitus without complications; Z89.512 Acquired absence of left leg below knee
CPT/HCPCS: 78300; A9503 ×2

== ENCOUNTER → 2018-07-29 | Outpatient (CLI) | payer MEDICARE ==
[2018-07-29 16:23] VITALS: BP 84/45
== END | disposition home or self-care (01) ==
LOC: WHH 13:00
PROVIDERS: ATTEND Family Medicine
DX: E11.622 Type 2 diabetes mellitus with other skin ulcer (principal); L89.893 Pressure ulcer of other site, stage 3; L97.822 Non-pressure chronic ulcer of other part of left lower leg with fat layer exposed; E11.22 Type 2 diabetes mellitus with diabetic chronic kidney disease; I13.0 Hypertensive heart and chronic kidney disease with heart failure and stage 1 through stage 4 chronic kidney disease, or unspecified chronic kidney disease; N18.6 End stage renal disease; I50.9 Heart failure, unspecified; E11.51 Type 2 diabetes mellitus with diabetic peripheral angiopathy without gangrene; E11.69 Type 2 diabetes mellitus with other specified complication; M86.652 Other chronic osteomyelitis, left thigh; M19.071 Primary osteoarthritis, right ankle and foot; I89.0 Lymphedema, not elsewhere classified; I25.10 Atherosclerotic heart disease of native coronary artery without angina pectoris; I25.2 Old myocardial infarction; I87.2 Venous insufficiency (chronic) (peripheral); E11.21 Type 2 diabetes mellitus with diabetic nephropathy; E66.01 Morbid (severe) obesity due to excess calories; E78.2 Mixed hyperlipidemia; I48.91 Unspecified atrial fibrillation; Z99.2 Dependence on renal dialysis; Z89.511 Acquired absence of right leg below knee; Z79.4 Long term (current) use of insulin; Z87.891 Personal history of nicotine dependence
CPT/HCPCS: 11042; 82948

== ENCOUNTER → 2018-08-05 | Outpatient (CLI) | payer MEDICARE ==
[~2018-08-05] MED LIST changes: +LIDOCAINE/PRILOCAINE CREAM 5GM TUBE TP ONE
[2018-08-05 16:50] VITALS: BP 91/53
== END | disposition home or self-care (01) ==
LOC: WHH 13:00
PROVIDERS: ATTEND Family Medicine
DX: E11.622 Type 2 diabetes mellitus with other skin ulcer (principal); L89.893 Pressure ulcer of other site, stage 3; L97.822 Non-pressure chronic ulcer of other part of left lower leg with fat layer exposed; E11.22 Type 2 diabetes mellitus with diabetic chronic kidney disease; I13.0 Hypertensive heart and chronic kidney disease with heart failure and stage 1 through stage 4 chronic kidney disease, or unspecified chronic kidney disease; N18.6 End stage renal disease; I50.9 Heart failure, unspecified; E11.51 Type 2 diabetes mellitus with diabetic peripheral angiopathy without gangrene; E11.69 Type 2 diabetes mellitus with other specified complication; M86.652 Other chronic osteomyelitis, left thigh; M86.8X7 Other osteomyelitis, ankle and foot; M19.071 Primary osteoarthritis, right ankle and foot; I89.0 Lymphedema, not elsewhere classified; I25.10 Atherosclerotic heart disease of native coronary artery without angina pectoris; I25.2 Old myocardial infarction; I87.2 Venous insufficiency (chronic) (peripheral); E11.21 Type 2 diabetes mellitus with diabetic nephropathy; E11.40 Type 2 diabetes mellitus with diabetic neuropathy, unspecified; E66.01 Morbid (severe) obesity due to excess calories; E78.2 Mixed hyperlipidemia; I48.91 Unspecified atrial fibrillation; Z99.2 Dependence on renal dialysis; Z89.511 Acquired absence of right leg below knee; Z89.512 Acquired absence of left leg below knee; Z79.4 Long term (current) use of insulin; Z87.891 Personal history of nicotine dependence; Z68.32 Body mass index [BMI] 32.0-32.9, adult; Z79.899 Other long term (current) drug therapy; Z95.1 Presence of aortocoronary bypass graft; Z95.810 Presence of automatic (implantable) cardiac defibrillator; Z88.5 Allergy status to narcotic agent
CPT/HCPCS: 11042; J3490

== ENCOUNTER → 2018-08-12 | Outpatient (CLI) | payer MEDICARE ==
[2018-08-12 15:18] VITALS: BP 108/48
== END | disposition home or self-care (01) ==
LOC: WHH 13:00
PROVIDERS: ATTEND Family Medicine
DX: T87.89 Other complications of amputation stump (principal); E11.622 Type 2 diabetes mellitus with other skin ulcer; L89.893 Pressure ulcer of other site, stage 3; L97.822 Non-pressure chronic ulcer of other part of left lower leg with fat layer exposed; E11.22 Type 2 diabetes mellitus with diabetic chronic kidney disease; N18.6 End stage renal disease; I13.0 Hypertensive heart and chronic kidney disease with heart failure and stage 1 through stage 4 chronic kidney disease, or unspecified chronic kidney disease; I50.9 Heart failure, unspecified; E11.21 Type 2 diabetes mellitus with diabetic nephropathy; E11.51 Type 2 diabetes mellitus with diabetic peripheral angiopathy without gangrene; I89.0 Lymphedema, not elsewhere classified; I87.2 Venous insufficiency (chronic) (peripheral); I25.10 Atherosclerotic heart disease of native coronary artery without angina pectoris; I25.2 Old myocardial infarction; E78.2 Mixed hyperlipidemia; M86.652 Other chronic osteomyelitis, left thigh; M86.8X7 Other osteomyelitis, ankle and foot; M19.079 Primary osteoarthritis, unspecified ankle and foot; Z89.511 Acquired absence of right leg below knee; Z99.2 Dependence on renal dialysis; Z79.4 Long term (current) use of insulin; Z87.891 Personal history of nicotine dependence; Z95.810 Presence of automatic (implantable) cardiac defibrillator; Y83.5 Amputation of limb(s) as the cause of abnormal reaction of the patient, or of later complication, without mention of misadventure at the time of the procedure
CPT/HCPCS: 11042; 82948; J3490

== ENCOUNTER → 2018-08-19 | Outpatient (CLI) | payer MEDICARE ==
[2018-08-19 15:51] VITALS: BP 96/54
== END | disposition home or self-care (01) ==
LOC: WHH 13:00
PROVIDERS: ATTEND Family Medicine
DX: T87.89 Other complications of amputation stump (principal); E11.622 Type 2 diabetes mellitus with other skin ulcer; L97.822 Non-pressure chronic ulcer of other part of left lower leg with fat layer exposed; E11.69 Type 2 diabetes mellitus with other specified complication; M86.652 Other chronic osteomyelitis, left thigh; M86.8X7 Other osteomyelitis, ankle and foot; E11.22 Type 2 diabetes mellitus with diabetic chronic kidney disease; I13.0 Hypertensive heart and chronic kidney disease with heart failure and stage 1 through stage 4 chronic kidney disease, or unspecified chronic kidney disease; I50.9 Heart failure, unspecified; N18.6 End stage renal disease; E11.40 Type 2 diabetes mellitus with diabetic neuropathy, unspecified; E11.51 Type 2 diabetes mellitus with diabetic peripheral angiopathy without gangrene; E11.21 Type 2 diabetes mellitus with diabetic nephropathy; I25.2 Old myocardial infarction; I87.2 Venous insufficiency (chronic) (peripheral); I89.0 Lymphedema, not elsewhere classified; I48.91 Unspecified atrial fibrillation; E78.2 Mixed hyperlipidemia; E66.01 Morbid (severe) obesity due to excess calories; M19.071 Primary osteoarthritis, right ankle and foot; Z99.2 Dependence on renal dialysis; Z87.891 Personal history of nicotine dependence; Z95.810 Presence of automatic (implantable) cardiac defibrillator; Z89.511 Acquired absence of right leg below knee; Z95.1 Presence of aortocoronary bypass graft; Y83.5 Amputation of limb(s) as the cause of abnormal reaction of the patient, or of later complication, without mention of misadventure at the time of the procedure
CPT/HCPCS: 11042; 82948; J3490

== ENCOUNTER → 2018-08-26 | Outpatient (CLI) | payer MEDICARE ==
[2018-08-26 14:54] VITALS: BP 101/53
== END | disposition home or self-care (01) ==
LOC: WHH 13:00
PROVIDERS: ATTEND Family Medicine
DX: E11.622 Type 2 diabetes mellitus with other skin ulcer (principal); L89.893 Pressure ulcer of other site, stage 3; L97.822 Non-pressure chronic ulcer of other part of left lower leg with fat layer exposed; E11.51 Type 2 diabetes mellitus with diabetic peripheral angiopathy without gangrene; E11.40 Type 2 diabetes mellitus with diabetic neuropathy, unspecified; E11.21 Type 2 diabetes mellitus with diabetic nephropathy; E11.22 Type 2 diabetes mellitus with diabetic chronic kidney disease; I13.2 Hypertensive heart and chronic kidney disease with heart failure and with stage 5 chronic kidney disease, or end stage renal disease; N18.6 End stage renal disease; I50.9 Heart failure, unspecified; E11.69 Type 2 diabetes mellitus with other specified complication; M86.8X7 Other osteomyelitis, ankle and foot; I89.0 Lymphedema, not elsewhere classified; I87.2 Venous insufficiency (chronic) (peripheral); I25.2 Old myocardial infarction; I25.10 Atherosclerotic heart disease of native coronary artery without angina pectoris; I48.91 Unspecified atrial fibrillation; E78.2 Mixed hyperlipidemia; M19.079 Primary osteoarthritis, unspecified ankle and foot; Z79.4 Long term (current) use of insulin; Z79.899 Other long term (current) drug therapy; Z87.891 Personal history of nicotine dependence; Z89.511 Acquired absence of right leg below knee; Z99.2 Dependence on renal dialysis; Z95.1 Presence of aortocoronary bypass graft; Z95.810 Presence of automatic (implantable) cardiac defibrillator; Z89.512 Acquired absence of left leg below knee
CPT/HCPCS: 11042; 82948; J3490

== ENCOUNTER → 2018-09-02 | Outpatient (CLI) | payer MEDICARE ==
[2018-09-02 14:23] VITALS: BP 107/44
== END | disposition home or self-care (01) ==
LOC: WHH 13:00
PROVIDERS: ATTEND Family Medicine
DX: E11.622 Type 2 diabetes mellitus with other skin ulcer (principal); L89.893 Pressure ulcer of other site, stage 3; S61.207A Unspecified open wound of left little finger without damage to nail, initial encounter; E11.51 Type 2 diabetes mellitus with diabetic peripheral angiopathy without gangrene; E11.22 Type 2 diabetes mellitus with diabetic chronic kidney disease; N18.6 End stage renal disease; I83.028 Varicose veins of left lower extremity with ulcer other part of lower leg; I87.2 Venous insufficiency (chronic) (peripheral); I89.0 Lymphedema, not elsewhere classified; I50.9 Heart failure, unspecified; Z89.512 Acquired absence of left leg below knee; E11.21 Type 2 diabetes mellitus with diabetic nephropathy; I13.2 Hypertensive heart and chronic kidney disease with heart failure and with stage 5 chronic kidney disease, or end stage renal disease; I25.10 Atherosclerotic heart disease of native coronary artery without angina pectoris; E11.69 Type 2 diabetes mellitus with other specified complication; M86.8X7 Other osteomyelitis, ankle and foot; E11.40 Type 2 diabetes mellitus with diabetic neuropathy, unspecified; M86.8X5 Other osteomyelitis, thigh; M19.071 Primary osteoarthritis, right ankle and foot; E66.01 Morbid (severe) obesity due to excess calories; I48.91 Unspecified atrial fibrillation; Z99.2 Dependence on renal dialysis; Z87.891 Personal history of nicotine dependence; Z79.4 Long term (current) use of insulin; Z89.511 Acquired absence of right leg below knee; Z95.810 Presence of automatic (implantable) cardiac defibrillator; W45.0XXA Nail entering through skin, initial encounter; Y93.89 Activity, other specified; Y99.8 Other external cause status; Y92.89 Other specified places as the place of occurrence of the external cause
CPT/HCPCS: 11042; A6212; A6213; J3490

== ENCOUNTER → 2018-09-04 | Outpatient (CLI) | payer MEDICARE ==
[~2018-09-04] MED LIST changes: -LIDOCAINE/PRILOCAINE CREAM 5GM TUBE TP ONE
== END | disposition home or self-care (01) ==
LOC: WHH 13:40
PROVIDERS: ATTEND Family Medicine
DX: E11.622 Type 2 diabetes mellitus with other skin ulcer (principal); L89.893 Pressure ulcer of other site, stage 3; L97.821 Non-pressure chronic ulcer of other part of left lower leg limited to breakdown of skin; E11.51 Type 2 diabetes mellitus with diabetic peripheral angiopathy without gangrene; E11.21 Type 2 diabetes mellitus with diabetic nephropathy; E11.22 Type 2 diabetes mellitus with diabetic chronic kidney disease; S61.207D Unspecified open wound of left little finger without damage to nail, subsequent encounter; I83.028 Varicose veins of left lower extremity with ulcer other part of lower leg; I25.10 Atherosclerotic heart disease of native coronary artery without angina pectoris; I13.2 Hypertensive heart and chronic kidney disease with heart failure and with stage 5 chronic kidney disease, or end stage renal disease; I50.9 Heart failure, unspecified; N18.6 End stage renal disease; E11.69 Type 2 diabetes mellitus with other specified complication; M86.8X7 Other osteomyelitis, ankle and foot; M86.8X5 Other osteomyelitis, thigh; E11.40 Type 2 diabetes mellitus with diabetic neuropathy, unspecified; I89.0 Lymphedema, not elsewhere classified; I48.91 Unspecified atrial fibrillation; I25.2 Old myocardial infarction; I87.2 Venous insufficiency (chronic) (peripheral); E66.01 Morbid (severe) obesity due to excess calories; Z99.2 Dependence on renal dialysis; E78.2 Mixed hyperlipidemia; M19.079 Primary osteoarthritis, unspecified ankle and foot; Z89.512 Acquired absence of left leg below knee; Z89.511 Acquired absence of right leg below knee; Z87.891 Personal history of nicotine dependence; Z95.810 Presence of automatic (implantable) cardiac defibrillator; Z79.899 Other long term (current) drug therapy; Z95.1 Presence of aortocoronary bypass graft; X58.XXXD Exposure to other specified factors, subsequent encounter
CPT/HCPCS: 93923

== ENCOUNTER → 2018-09-09 | Outpatient (CLI) | payer MEDICARE ==
[2018-09-09 15:52] VITALS: BP 90/45
== END | disposition home or self-care (01) ==
LOC: WHH 13:00
PROVIDERS: ATTEND Family Medicine
DX: E11.622 Type 2 diabetes mellitus with other skin ulcer (principal); L89.893 Pressure ulcer of other site, stage 3; L97.822 Non-pressure chronic ulcer of other part of left lower leg with fat layer exposed; S61.207D Unspecified open wound of left little finger without damage to nail, subsequent encounter; E11.51 Type 2 diabetes mellitus with diabetic peripheral angiopathy without gangrene; E11.21 Type 2 diabetes mellitus with diabetic nephropathy; E11.40 Type 2 diabetes mellitus with diabetic neuropathy, unspecified; E11.22 Type 2 diabetes mellitus with diabetic chronic kidney disease; I13.2 Hypertensive heart and chronic kidney disease with heart failure and with stage 5 chronic kidney disease, or end stage renal disease; N18.6 End stage renal disease; I50.9 Heart failure, unspecified; E11.69 Type 2 diabetes mellitus with other specified complication; M86.8X7 Other osteomyelitis, ankle and foot; M86.8X5 Other osteomyelitis, thigh; I25.10 Atherosclerotic heart disease of native coronary artery without angina pectoris; I87.2 Venous insufficiency (chronic) (peripheral); I89.0 Lymphedema, not elsewhere classified; I48.91 Unspecified atrial fibrillation; M19.071 Primary osteoarthritis, right ankle and foot; I25.2 Old myocardial infarction; E78.2 Mixed hyperlipidemia; E66.01 Morbid (severe) obesity due to excess calories; Z89.512 Acquired absence of left leg below knee; Z95.810 Presence of automatic (implantable) cardiac defibrillator; Z89.511 Acquired absence of right leg below knee; Z99.2 Dependence on renal dialysis; Z87.891 Personal history of nicotine dependence; Z95.1 Presence of aortocoronary bypass graft; Z79.4 Long term (current) use of insulin; Z88.5 Allergy status to narcotic agent; W45.0XXD Nail entering through skin, subsequent encounter
CPT/HCPCS: 11042; 87070; 87077 ×2; 87186 ×2; A6213

== ENCOUNTER → 2018-09-16 | Outpatient (CLI) | payer MEDICARE ==
[~2018-09-16] MED LIST changes: +LIDOCAINE/PRILOCAINE CREAM 5GM TUBE TP ONE
[2018-09-16 16:11] VITALS: BP 90/50
== END | disposition home or self-care (01) ==
LOC: WHH 13:00
PROVIDERS: ATTEND Family Medicine
DX: E11.622 Type 2 diabetes mellitus with other skin ulcer (principal); L89.893 Pressure ulcer of other site, stage 3; L97.822 Non-pressure chronic ulcer of other part of left lower leg with fat layer exposed; E11.51 Type 2 diabetes mellitus with diabetic peripheral angiopathy without gangrene; S61.207D Unspecified open wound of left little finger without damage to nail, subsequent encounter; S61.202A Unspecified open wound of right middle finger without damage to nail, initial encounter; E11.21 Type 2 diabetes mellitus with diabetic nephropathy; E11.22 Type 2 diabetes mellitus with diabetic chronic kidney disease; I13.2 Hypertensive heart and chronic kidney disease with heart failure and with stage 5 chronic kidney disease, or end stage renal disease; N18.6 End stage renal disease; I50.9 Heart failure, unspecified; E11.69 Type 2 diabetes mellitus with other specified complication; M86.8X7 Other osteomyelitis, ankle and foot; M86.652 Other chronic osteomyelitis, left thigh; E11.40 Type 2 diabetes mellitus with diabetic neuropathy, unspecified; I83.028 Varicose veins of left lower extremity with ulcer other part of lower leg; I89.0 Lymphedema, not elsewhere classified; I87.2 Venous insufficiency (chronic) (peripheral); I25.10 Atherosclerotic heart disease of native coronary artery without angina pectoris; I25.2 Old myocardial infarction; I48.91 Unspecified atrial fibrillation; E78.2 Mixed hyperlipidemia; E66.01 Morbid (severe) obesity due to excess calories; M19.079 Primary osteoarthritis, unspecified ankle and foot; Z89.512 Acquired absence of left leg below knee; Z89.511 Acquired absence of right leg below knee; Z88.5 Allergy status to narcotic agent; Z99.2 Dependence on renal dialysis; Z79.4 Long term (current) use of insulin; Z87.891 Personal history of nicotine dependence; Z95.810 Presence of automatic (implantable) cardiac defibrillator; Z95.1 Presence of aortocoronary bypass graft; Z79.899 Other long term (current) drug therapy; X58.XXXD Exposure to other specified factors, subsequent encounter; X58.XXXA Exposure to other specified factors, initial encounter; Y93.89 Activity, other specified; Y92.89 Other specified places as the place of occurrence of the external cause; Y99.8 Other external cause status
CPT/HCPCS: 11042; A6213; J3490

== ENCOUNTER → 2018-09-23 | Outpatient (CLI) | payer MEDICARE ==
[~2018-09-23] MED LIST changes: -LIDOCAINE/PRILOCAINE CREAM 5GM TUBE TP ONE
[2018-09-23 18:02] VITALS: BP 104/68
== END | disposition home or self-care (01) ==
LOC: WHH 13:00
PROVIDERS: ATTEND Family Medicine
DX: E11.622 Type 2 diabetes mellitus with other skin ulcer (principal); L89.893 Pressure ulcer of other site, stage 3; L97.822 Non-pressure chronic ulcer of other part of left lower leg with fat layer exposed; S61.207D Unspecified open wound of left little finger without damage to nail, subsequent encounter; S61.202D Unspecified open wound of right middle finger without damage to nail, subsequent encounter; I83.028 Varicose veins of left lower extremity with ulcer other part of lower leg; E11.51 Type 2 diabetes mellitus with diabetic peripheral angiopathy without gangrene; E11.21 Type 2 diabetes mellitus with diabetic nephropathy; E11.22 Type 2 diabetes mellitus with diabetic chronic kidney disease; I13.2 Hypertensive heart and chronic kidney disease with heart failure and with stage 5 chronic kidney disease, or end stage renal disease; N18.6 End stage renal disease; I50.9 Heart failure, unspecified; E11.40 Type 2 diabetes mellitus with diabetic neuropathy, unspecified; I89.0 Lymphedema, not elsewhere classified; I87.2 Venous insufficiency (chronic) (peripheral); I25.10 Atherosclerotic heart disease of native coronary artery without angina pectoris; I25.2 Old myocardial infarction; I48.91 Unspecified atrial fibrillation; E78.5 Hyperlipidemia, unspecified; E66.01 Morbid (severe) obesity due to excess calories; M19.079 Primary osteoarthritis, unspecified ankle and foot; Z89.512 Acquired absence of left leg below knee; Z89.511 Acquired absence of right leg below knee; Z88.5 Allergy status to narcotic agent; Z99.2 Dependence on renal dialysis; Z79.4 Long term (current) use of insulin; Z87.891 Personal history of nicotine dependence; Z95.810 Presence of automatic (implantable) cardiac defibrillator; Z95.1 Presence of aortocoronary bypass graft; Z79.899 Other long term (current) drug therapy; X58.XXXD Exposure to other specified factors, subsequent encounter
CPT/HCPCS: 11042; A6213

== ENCOUNTER → 2018-09-30 | Outpatient (CLI) | payer MEDICARE ==
[~2018-09-30] MED LIST changes: +LIDOCAINE/PRILOCAINE CREAM 5GM TUBE TP ONE
[2018-09-30 17:06] VITALS: BP 136/66
== END | disposition home or self-care (01) ==
LOC: WHH 13:00
PROVIDERS: ATTEND Family Medicine
DX: S61.207D Unspecified open wound of left little finger without damage to nail, subsequent encounter (principal); S61.202D Unspecified open wound of right middle finger without damage to nail, subsequent encounter; S81.001A Unspecified open wound, right knee, initial encounter; E11.51 Type 2 diabetes mellitus with diabetic peripheral angiopathy without gangrene; E11.22 Type 2 diabetes mellitus with diabetic chronic kidney disease; I13.2 Hypertensive heart and chronic kidney disease with heart failure and with stage 5 chronic kidney disease, or end stage renal disease; N18.6 End stage renal disease; I50.9 Heart failure, unspecified; E11.21 Type 2 diabetes mellitus with diabetic nephropathy; E11.69 Type 2 diabetes mellitus with other specified complication; M86.8X7 Other osteomyelitis, ankle and foot; M86.8X5 Other osteomyelitis, thigh; I25.10 Atherosclerotic heart disease of native coronary artery without angina pectoris; I48.91 Unspecified atrial fibrillation; I87.2 Venous insufficiency (chronic) (peripheral); I25.2 Old myocardial infarction; I89.0 Lymphedema, not elsewhere classified; E78.5 Hyperlipidemia, unspecified; E66.01 Morbid (severe) obesity due to excess calories; E78.2 Mixed hyperlipidemia; M19.079 Primary osteoarthritis, unspecified ankle and foot; M19.071 Primary osteoarthritis, right ankle and foot; Z99.2 Dependence on renal dialysis; Z95.1 Presence of aortocoronary bypass graft; Z95.810 Presence of automatic (implantable) cardiac defibrillator; Z89.512 Acquired absence of left leg below knee; Z89.511 Acquired absence of right leg below knee; Z88.5 Allergy status to narcotic agent; Z87.891 Personal history of nicotine dependence; Z79.899 Other long term (current) drug therapy; X58.XXXD Exposure to other specified factors, subsequent encounter; W19.XXXA Unspecified fall, initial encounter; Y93.89 Activity, other specified; Y92.59 Other trade areas as the place of occurrence of the external cause; Y99.8 Other external cause status
CPT/HCPCS: 11042; 11044; 82948; 87070; 87077; 87186; A6213; J3490

== ENCOUNTER → 2018-10-07 | Outpatient (CLI) | payer MEDICARE ==
[~2018-10-07] MED LIST changes: -LIDOCAINE/PRILOCAINE CREAM 5GM TUBE TP ONE
[2018-10-07 14:43] VITALS: BP 91/54
== END | disposition home or self-care (01) ==
LOC: WHH 12:58
PROVIDERS: ATTEND Family Medicine
DX: S61.207D Unspecified open wound of left little finger without damage to nail, subsequent encounter (principal); S61.202D Unspecified open wound of right middle finger without damage to nail, subsequent encounter; S81.001D Unspecified open wound, right knee, subsequent encounter; E11.22 Type 2 diabetes mellitus with diabetic chronic kidney disease; I13.2 Hypertensive heart and chronic kidney disease with heart failure and with stage 5 chronic kidney disease, or end stage renal disease; N18.6 End stage renal disease; I50.9 Heart failure, unspecified; E11.69 Type 2 diabetes mellitus with other specified complication; M86.8X7 Other osteomyelitis, ankle and foot; M86.652 Other chronic osteomyelitis, left thigh; E11.21 Type 2 diabetes mellitus with diabetic nephropathy; E11.51 Type 2 diabetes mellitus with diabetic peripheral angiopathy without gangrene; E11.40 Type 2 diabetes mellitus with diabetic neuropathy, unspecified; I25.10 Atherosclerotic heart disease of native coronary artery without angina pectoris; I48.91 Unspecified atrial fibrillation; I83.90 Asymptomatic varicose veins of unspecified lower extremity; I87.2 Venous insufficiency (chronic) (peripheral); I89.0 Lymphedema, not elsewhere classified; I25.2 Old myocardial infarction; E78.5 Hyperlipidemia, unspecified; E78.2 Mixed hyperlipidemia; E66.01 Morbid (severe) obesity due to excess calories; M19.071 Primary osteoarthritis, right ankle and foot; Z95.1 Presence of aortocoronary bypass graft; Z95.810 Presence of automatic (implantable) cardiac defibrillator; Z89.512 Acquired absence of left leg below knee; Z89.511 Acquired absence of right leg below knee; Z88.5 Allergy status to narcotic agent; Z99.2 Dependence on renal dialysis; Z87.891 Personal history of nicotine dependence; Z79.4 Long term (current) use of insulin; X58.XXXD Exposure to other specified factors, subsequent encounter
CPT/HCPCS: 11042; A6213

== ENCOUNTER → 2018-10-14 | Outpatient (CLI) | payer MEDICARE ==
[~2018-10-14] MED LIST changes: +LIDOCAINE/PRILOCAINE CREAM 5GM TUBE TP ONE
[2018-10-14 15:36] VITALS: BP 96/54
== END | disposition home or self-care (01) ==
LOC: WHH 13:00
PROVIDERS: ATTEND Family Medicine
DX: E11.622 Type 2 diabetes mellitus with other skin ulcer (principal); L89.893 Pressure ulcer of other site, stage 3; L98.494 Non-pressure chronic ulcer of skin of other sites with necrosis of bone; L97.811 Non-pressure chronic ulcer of other part of right lower leg limited to breakdown of skin; E11.22 Type 2 diabetes mellitus with diabetic chronic kidney disease; I13.2 Hypertensive heart and chronic kidney disease with heart failure and with stage 5 chronic kidney disease, or end stage renal disease; N18.6 End stage renal disease; I50.9 Heart failure, unspecified; E11.69 Type 2 diabetes mellitus with other specified complication; M86.652 Other chronic osteomyelitis, left thigh; M86.8X7 Other osteomyelitis, ankle and foot; E11.21 Type 2 diabetes mellitus with diabetic nephropathy; E11.51 Type 2 diabetes mellitus with diabetic peripheral angiopathy without gangrene; I83.028 Varicose veins of left lower extremity with ulcer other part of lower leg; I48.91 Unspecified atrial fibrillation; I25.10 Atherosclerotic heart disease of native coronary artery without angina pectoris; I89.0 Lymphedema, not elsewhere classified; I87.2 Venous insufficiency (chronic) (peripheral); I25.2 Old myocardial infarction; E66.01 Morbid (severe) obesity due to excess calories; M19.071 Primary osteoarthritis, right ankle and foot; Z95.810 Presence of automatic (implantable) cardiac defibrillator; Z89.512 Acquired absence of left leg below knee; Z89.511 Acquired absence of right leg below knee; Z88.5 Allergy status to narcotic agent; Z99.2 Dependence on renal dialysis; Z79.4 Long term (current) use of insulin; Z87.891 Personal history of nicotine dependence; Z79.899 Other long term (current) drug therapy
CPT/HCPCS: 11042; A6213; J3490

== ENCOUNTER → 2018-10-21 | Outpatient (CLI) | payer MEDICARE ==
[~2018-10-21] MED LIST changes: -LIDOCAINE/PRILOCAINE CREAM 5GM TUBE TP ONE
[2018-10-21 16:35] VITALS: BP 78/42
== END | disposition home or self-care (01) ==
LOC: WHH 13:00
PROVIDERS: ATTEND Family Medicine
DX: S61.207D Unspecified open wound of left little finger without damage to nail, subsequent encounter (principal); S61.202D Unspecified open wound of right middle finger without damage to nail, subsequent encounter; S81.001D Unspecified open wound, right knee, subsequent encounter; E11.22 Type 2 diabetes mellitus with diabetic chronic kidney disease; I13.2 Hypertensive heart and chronic kidney disease with heart failure and with stage 5 chronic kidney disease, or end stage renal disease; N18.6 End stage renal disease; I50.9 Heart failure, unspecified; E11.51 Type 2 diabetes mellitus with diabetic peripheral angiopathy without gangrene; E11.69 Type 2 diabetes mellitus with other specified complication; M86.652 Other chronic osteomyelitis, left thigh; M86.8X5 Other osteomyelitis, thigh; E11.21 Type 2 diabetes mellitus with diabetic nephropathy; E11.40 Type 2 diabetes mellitus with diabetic neuropathy, unspecified; I48.91 Unspecified atrial fibrillation; I87.2 Venous insufficiency (chronic) (peripheral); I25.10 Atherosclerotic heart disease of native coronary artery without angina pectoris; I25.2 Old myocardial infarction; E78.5 Hyperlipidemia, unspecified; E78.2 Mixed hyperlipidemia; E66.01 Morbid (severe) obesity due to excess calories; M19.071 Primary osteoarthritis, right ankle and foot; Z99.2 Dependence on renal dialysis; Z89.512 Acquired absence of left leg below knee; Z79.4 Long term (current) use of insulin; Z79.899 Other long term (current) drug therapy; Z87.891 Personal history of nicotine dependence; Z95.810 Presence of automatic (implantable) cardiac defibrillator; Z95.1 Presence of aortocoronary bypass graft; Z89.511 Acquired absence of right leg below knee; W19.XXXD Unspecified fall, subsequent encounter
CPT/HCPCS: 11042; 11044

== ENCOUNTER → 2018-10-28 | Outpatient (CLI) | payer MEDICARE ==
[~2018-10-28] MED LIST changes: +LIDOCAINE/PRILOCAINE CREAM 5GM TUBE TP ONE
[2018-10-28 15:01] VITALS: BP 86/40
== END | disposition home or self-care (01) ==
LOC: WHH 13:00
PROVIDERS: ATTEND Family Medicine
DX: E11.622 Type 2 diabetes mellitus with other skin ulcer (principal); L89.893 Pressure ulcer of other site, stage 3; L98.496 Non-pressure chronic ulcer of skin of other sites with bone involvement without evidence of necrosis; E11.22 Type 2 diabetes mellitus with diabetic chronic kidney disease; N18.6 End stage renal disease; I13.2 Hypertensive heart and chronic kidney disease with heart failure and with stage 5 chronic kidney disease, or end stage renal disease; I50.9 Heart failure, unspecified; E11.69 Type 2 diabetes mellitus with other specified complication; M86.652 Other chronic osteomyelitis, left thigh; E11.21 Type 2 diabetes mellitus with diabetic nephropathy; E11.40 Type 2 diabetes mellitus with diabetic neuropathy, unspecified; E11.51 Type 2 diabetes mellitus with diabetic peripheral angiopathy without gangrene; I25.10 Atherosclerotic heart disease of native coronary artery without angina pectoris; I48.91 Unspecified atrial fibrillation; I87.2 Venous insufficiency (chronic) (peripheral); I89.0 Lymphedema, not elsewhere classified; I25.2 Old myocardial infarction; E78.5 Hyperlipidemia, unspecified; E78.2 Mixed hyperlipidemia; E66.01 Morbid (severe) obesity due to excess calories; M19.071 Primary osteoarthritis, right ankle and foot; Z89.512 Acquired absence of left leg below knee; Z95.810 Presence of automatic (implantable) cardiac defibrillator; Z89.511 Acquired absence of right leg below knee; Z99.2 Dependence on renal dialysis; Z79.4 Long term (current) use of insulin; Z79.899 Other long term (current) drug therapy; Z87.891 Personal history of nicotine dependence; Z95.1 Presence of aortocoronary bypass graft; Z88.5 Allergy status to narcotic agent
CPT/HCPCS: 11042; 11044; 82948; J3490

== ENCOUNTER → 2018-11-04 | Outpatient (CLI) | payer MEDICARE ==
[~2018-11-04] MED LIST changes: +LIDOCAINE HCL 2% JELLY 5 ML TP ONE; -LIDOCAINE/PRILOCAINE CREAM 5GM TUBE TP ONE
[2018-11-04 15:33] VITALS: BP 78/40
== END | disposition home or self-care (01) ==
LOC: WHH 13:30
PROVIDERS: ATTEND Family Medicine
DX: E11.622 Type 2 diabetes mellitus with other skin ulcer (principal); L89.893 Pressure ulcer of other site, stage 3; L98.496 Non-pressure chronic ulcer of skin of other sites with bone involvement without evidence of necrosis; L97.412 Non-pressure chronic ulcer of right heel and midfoot with fat layer exposed; E11.40 Type 2 diabetes mellitus with diabetic neuropathy, unspecified; E11.51 Type 2 diabetes mellitus with diabetic peripheral angiopathy without gangrene; E11.22 Type 2 diabetes mellitus with diabetic chronic kidney disease; I13.2 Hypertensive heart and chronic kidney disease with heart failure and with stage 5 chronic kidney disease, or end stage renal disease; N18.6 End stage renal disease; I50.9 Heart failure, unspecified; E11.69 Type 2 diabetes mellitus with other specified complication; M86.652 Other chronic osteomyelitis, left thigh; M86.8X7 Other osteomyelitis, ankle and foot; E11.21 Type 2 diabetes mellitus with diabetic nephropathy; I25.10 Atherosclerotic heart disease of native coronary artery without angina pectoris; I25.2 Old myocardial infarction; I87.2 Venous insufficiency (chronic) (peripheral); I89.0 Lymphedema, not elsewhere classified; I48.91 Unspecified atrial fibrillation; E78.5 Hyperlipidemia, unspecified; M19.071 Primary osteoarthritis, right ankle and foot; E66.01 Morbid (severe) obesity due to excess calories; Z89.512 Acquired absence of left leg below knee; Z99.2 Dependence on renal dialysis; Z95.810 Presence of automatic (implantable) cardiac defibrillator; Z89.511 Acquired absence of right leg below knee; Z88.5 Allergy status to narcotic agent; Z79.4 Long term (current) use of insulin; Z87.891 Personal history of nicotine dependence; Z95.1 Presence of aortocoronary bypass graft
CPT/HCPCS: 11042; A6196

== ENCOUNTER → 2018-11-11 | Outpatient (CLI) | payer MEDICARE ==
[~2018-11-11] MED LIST changes: -LIDOCAINE HCL 2% JELLY 5 ML TP ONE; +LIDOCAINE/PRILOCAINE CREAM 5GM TUBE TP ONE
[2018-11-11 16:47] VITALS: BP 101/54
== END | disposition home or self-care (01) ==
LOC: WHH 13:00
PROVIDERS: ATTEND Family Medicine
DX: E11.621 Type 2 diabetes mellitus with foot ulcer (principal); L89.893 Pressure ulcer of other site, stage 3; L97.412 Non-pressure chronic ulcer of right heel and midfoot with fat layer exposed; E11.622 Type 2 diabetes mellitus with other skin ulcer; L98.496 Non-pressure chronic ulcer of skin of other sites with bone involvement without evidence of necrosis; E11.51 Type 2 diabetes mellitus with diabetic peripheral angiopathy without gangrene; E11.22 Type 2 diabetes mellitus with diabetic chronic kidney disease; I13.2 Hypertensive heart and chronic kidney disease with heart failure and with stage 5 chronic kidney disease, or end stage renal disease; N18.6 End stage renal disease; I50.9 Heart failure, unspecified; E11.69 Type 2 diabetes mellitus with other specified complication; M86.8X7 Other osteomyelitis, ankle and foot; E11.40 Type 2 diabetes mellitus with diabetic neuropathy, unspecified; E11.21 Type 2 diabetes mellitus with diabetic nephropathy; I25.10 Atherosclerotic heart disease of native coronary artery without angina pectoris; I87.2 Venous insufficiency (chronic) (peripheral); I25.2 Old myocardial infarction; I48.91 Unspecified atrial fibrillation; I89.0 Lymphedema, not elsewhere classified; E78.5 Hyperlipidemia, unspecified; E66.01 Morbid (severe) obesity due to excess calories; M19.071 Primary osteoarthritis, right ankle and foot; Z95.5 Presence of coronary angioplasty implant and graft; Z89.512 Acquired absence of left leg below knee; Z99.2 Dependence on renal dialysis; Z95.810 Presence of automatic (implantable) cardiac defibrillator; Z89.511 Acquired absence of right leg below knee; Z88.5 Allergy status to narcotic agent; Z79.4 Long term (current) use of insulin; Z87.891 Personal history of nicotine dependence; Z95.1 Presence of aortocoronary bypass graft
CPT/HCPCS: 11042; A6213; J3490

== ENCOUNTER → 2018-11-18 | Outpatient (CLI) | payer MEDICARE ==
[2018-11-18 15:25] VITALS: BP 97/42
== END | disposition home or self-care (01) ==
LOC: WHH 13:00
PROVIDERS: ATTEND Family Medicine
DX: E11.621 Type 2 diabetes mellitus with foot ulcer (principal); L89.899 Pressure ulcer of other site, unspecified stage; L97.412 Non-pressure chronic ulcer of right heel and midfoot with fat layer exposed; E11.622 Type 2 diabetes mellitus with other skin ulcer; L98.496 Non-pressure chronic ulcer of skin of other sites with bone involvement without evidence of necrosis; E11.51 Type 2 diabetes mellitus with diabetic peripheral angiopathy without gangrene; E11.22 Type 2 diabetes mellitus with diabetic chronic kidney disease; I13.2 Hypertensive heart and chronic kidney disease with heart failure and with stage 5 chronic kidney disease, or end stage renal disease; N18.6 End stage renal disease; I50.9 Heart failure, unspecified; E11.69 Type 2 diabetes mellitus with other specified complication; M86.8X7 Other osteomyelitis, ankle and foot; E11.40 Type 2 diabetes mellitus with diabetic neuropathy, unspecified; E11.21 Type 2 diabetes mellitus with diabetic nephropathy; I25.10 Atherosclerotic heart disease of native coronary artery without angina pectoris; I87.2 Venous insufficiency (chronic) (peripheral); I25.2 Old myocardial infarction; I48.91 Unspecified atrial fibrillation; I89.0 Lymphedema, not elsewhere classified; E78.5 Hyperlipidemia, unspecified; E66.01 Morbid (severe) obesity due to excess calories; M19.071 Primary osteoarthritis, right ankle and foot; Z95.5 Presence of coronary angioplasty implant and graft; Z89.512 Acquired absence of left leg below knee; Z99.2 Dependence on renal dialysis; Z95.810 Presence of automatic (implantable) cardiac defibrillator; Z89.511 Acquired absence of right leg below knee; Z88.5 Allergy status to narcotic agent; Z79.4 Long term (current) use of insulin; Z87.891 Personal history of nicotine dependence; Z95.1 Presence of aortocoronary bypass graft
CPT/HCPCS: 11042; A6213; J3490

== ENCOUNTER → 2018-11-25 | Outpatient (CLI) | payer MEDICARE ==
[2018-11-25 14:26] VITALS: BP 94/53
== END | disposition home or self-care (01) ==
LOC: WHH 13:00
PROVIDERS: ATTEND Family Medicine
DX: E11.621 Type 2 diabetes mellitus with foot ulcer (principal); L89.899 Pressure ulcer of other site, unspecified stage; L97.412 Non-pressure chronic ulcer of right heel and midfoot with fat layer exposed; E11.622 Type 2 diabetes mellitus with other skin ulcer; L98.496 Non-pressure chronic ulcer of skin of other sites with bone involvement without evidence of necrosis; E11.51 Type 2 diabetes mellitus with diabetic peripheral angiopathy without gangrene; E11.22 Type 2 diabetes mellitus with diabetic chronic kidney disease; I13.2 Hypertensive heart and chronic kidney disease with heart failure and with stage 5 chronic kidney disease, or end stage renal disease; N18.6 End stage renal disease; I50.9 Heart failure, unspecified; E11.69 Type 2 diabetes mellitus with other specified complication; M86.8X7 Other osteomyelitis, ankle and foot; E11.40 Type 2 diabetes mellitus with diabetic neuropathy, unspecified; E11.21 Type 2 diabetes mellitus with diabetic nephropathy; I25.10 Atherosclerotic heart disease of native coronary artery without angina pectoris; I87.2 Venous insufficiency (chronic) (peripheral); I25.2 Old myocardial infarction; I48.91 Unspecified atrial fibrillation; I89.0 Lymphedema, not elsewhere classified; E78.5 Hyperlipidemia, unspecified; E66.01 Morbid (severe) obesity due to excess calories; M19.071 Primary osteoarthritis, right ankle and foot; Z95.5 Presence of coronary angioplasty implant and graft; Z89.512 Acquired absence of left leg below knee; Z99.2 Dependence on renal dialysis; Z95.810 Presence of automatic (implantable) cardiac defibrillator; Z89.511 Acquired absence of right leg below knee; Z88.5 Allergy status to narcotic agent; Z79.4 Long term (current) use of insulin; Z87.891 Personal history of nicotine dependence; Z95.1 Presence of aortocoronary bypass graft
CPT/HCPCS: 11042; A6213; J3490

== ENCOUNTER 2018-11-26 13:53 | Inpatient (IN) | payer MEDICARE ==
[~2018-11-26] VITALS: Ht 167.6 cm; Wt 91.8 kg
[~2018-11-26 13:53] MED LIST changes: -LIDOCAINE/PRILOCAINE CREAM 5GM TUBE TP ONE
[2018-11-26 15:04] LABS: BASOPHILS % (AUTO) 2.2 % (0.0-5.0); HEMATOCRIT 47.4 % (42-54); LYMPHOCYTES % (AUTO) 3.1 % (21.0-51.0); MEAN CORPUSCULAR HEMOGLOBIN 27.6 pg (27.0-33.0); MEAN CORPUSCULAR HGB CONC 31.9 g/dL (32.0-36.0); MEAN CORPUSCULAR VOLUME 86.6 fL (79-99); MONOCYTES % (AUTO) 8.5 % (3.0-13.0); NEUTROPHILS % (AUTO) 85.2 % (40.0-77.0); NUCLEATED RED BLOOD CELLS 0.1 % (0.0-0.19); PLATELET COUNT (AUTO) 159 K/uL (130-400); RED BLOOD CELL COUNT(AUTO) 5.47 MIL/uL (4.50-6.20); RED CELL DISTRIBUTION WIDTH 18.2 % (11.0-15.5); WHITE BLOOD COUNT (AUTO) 9.3 K/uL (4.8-10.8)
[2018-11-26 15:15] LABS: CREATININE 5.5 mg/dL (0.5-1.5); POTASSIUM 4.3 mmol/L (3.5-5.1)
[2018-11-26] MEDS ORDERED: ZOSYN 3.375GM+NS 50ML 50 ML IV ONE (16:46)
[2018-11-26] MEDS ORDERED: VANCOMYCIN PROTOCOL PER PHARMACY IV PRN (18:15)
[2018-11-26] MEDS ORDERED: ONDANSETRON HCL 4 MG/2 ML VIAL IV PRN (18:15)
[2018-11-26] MEDS ORDERED: HYDRALAZINE HCL 20 MG/ML VIAL IV PRN (18:15)
[2018-11-26] MEDS ORDERED: ACETAMINOPHEN 325 MG TAB PO PRN ×2 (18:15)
[2018-11-26] MEDS ORDERED: MORPHINE SULFATE 2 MG/ML 1ML SYG IV PRN (18:15)
[2018-11-26 18:33] LABS: HEMOGLOBIN A1C 5.6 % (4.0-6.0)
[2018-11-26] MEDS ORDERED: VANCOMYCIN 1GM+NS 250ML 250 ML IV ONE (18:56)
[2018-11-26] MEDS: PHARMACY COMMUNICATION MISC SCH (19:04)
[2018-11-26 19:22] VITALS: BP 96/49
[2018-11-26] MEDS ORDERED: VANCOMYCIN 2 GM in SODIUM CHLORIDE 0.9% 500ML 500 ML IV ONE (19:30)
[2018-11-27] VITALS (7 sets, daily range): BP systolic 91–115; BP diastolic 50–85
[2018-11-27] MEDS: PHARMACY COMMUNICATION MISC SCH ×3 (03:04→18:25)
[2018-11-27] MEDS: ZOSYN 3.375GM+NS 50ML 50 ML IV SCH ×2 (03:58→18:37)
[2018-11-27 05:01] LABS: HEMATOCRIT 46.7 % (42-54); MEAN CORPUSCULAR HEMOGLOBIN 26.9 pg (27.0-33.0); MEAN CORPUSCULAR HGB CONC 31.3 g/dL (32.0-36.0); MEAN CORPUSCULAR VOLUME 86.1 fL (79-99); NUCLEATED RED BLOOD CELLS 0.1 % (0.0-0.19); PLATELET COUNT (AUTO) 164 K/uL (130-400); RED BLOOD CELL COUNT(AUTO) 5.42 MIL/uL (4.50-6.20); RED CELL DISTRIBUTION WIDTH 18.3 % (11.0-15.5); WHITE BLOOD COUNT (AUTO) 8.6 K/uL (4.8-10.8)
[2018-11-27 05:22] LABS: CREATININE 5.9 mg/dL (0.5-1.5); POTASSIUM 4.3 mmol/L (3.5-5.1); THYROID STIMULATING HORMONE 6.75 uIU/mL (0.36-3.74)
[2018-11-27] MEDS: ENOXAPARIN SODIUM 30 MG/0.3 ML SQ SCH (09:00)
[2018-11-27] MEDS: FAMOTIDINE/PF 20 MG/2 ML VIAL IV SCH (09:32)
[2018-11-27] MEDS ORDERED: MIDO5TAB PO (09:38)
--- NOTE | 2018-11-27 11:07 | NUR ---
BIMAL Jenkins met with pt who reports he lives with SOSA Chopra [phone]. Pt has provider 4.5hrs daily and wound care 2x a week thru [facility] in [place]. Pt has heena w/alex, transport chair, scooter, transfer bath bench, and nebulizer. pt goes to [facility] in [facility] at 5:30am, drives self or GF drives. States he is changing PCP to Margarita (waiting for appt), uses [facility] rx. Pt denies dc needs at this time, plan is home at dc Addendum: 11/27/18 at 1111 by FAINA ORNELAS Amended: Links added.
[2018-11-27] MEDS: MIDODRINE HCL 5 MG TABLET PO SCH ×2 (14:00→21:23)
[2018-11-27] MEDS ORDERED: PHARMACY COMMUNICATION MISC SCH (14:00)
[2018-11-27] MEDS ORDERED: LIDOCAINE HCL-MPF 1% 2ML VIAL IJ PRN (14:15)
[2018-11-27] MEDS ORDERED: ACETAMINOPHEN 325 MG TAB PO PRN (14:15)
[2018-11-27] MEDS ORDERED: 0.9% SODIUM CHLORIDE 1000 ML IV BAG IV PRN (14:15)
[2018-11-27] MEDS ORDERED: HEPARIN SODIUM 5000UNIT/ML 1ML VIAL IJ PRN ×2 (14:15)
[2018-11-27] MEDS ORDERED: NITROGLYCERIN 0.4 MG SL TAB SL PRN (14:15)
--- NOTE | 2018-11-27 16:35 | NUR ---
[facility] consult Patient is active at [facility] for current wounds. Patient pending procedure for wounds to fingers of right and left hands. [facility] recommendations submitted. Addendum: 11/27/18 at 1745 by TEJAS GROVES RN/ Amended: Links added.
--- NOTE | 2018-11-27 18:45 | NUR ---
CONSENT Patient stated he will not sign consent today for revision and amputation of left fifth finger until he talks to Dr. Aranda in person. Dr. Aranda was notified of this earlier and stated to inform patient that he will not cut hand, just the minimum necessary where the problem is. Patient stated he is not refusing surgery and that he does want to have the surgery and does consent to surgery but that he will not sign the consent until tomorrow after he talks to the doctor himself.
[2018-11-27] MEDS ORDERED: SODIUM CHLORIDE 0.9% 100 ML IV ONE (18:47)
[2018-11-27] MEDS: ALBUMIN (HUMAN) 25% 100 ML IV NR (21:23)
[2018-11-28] VITALS (22 sets, daily range): BP systolic 87–127; BP diastolic 42–75
[2018-11-28 04:20] LABS: CREATININE 4.8 mg/dL (0.5-1.5); POTASSIUM 4.2 mmol/L (3.5-5.1)
[2018-11-28 04:32] LABS: BASOPHILS % (AUTO) 2.3 % (0.0-5.0); EOSINOPHILS % (AUTO) 2.4 % (0.0-8.0); HEMATOCRIT 43.6 % (42-54); LYMPHOCYTES % (AUTO) 4.7 % (21.0-51.0); MEAN CORPUSCULAR HEMOGLOBIN 28.3 pg (27.0-33.0); MEAN CORPUSCULAR VOLUME 85.7 fL (79-99); MONOCYTES % (AUTO) 9.8 % (3.0-13.0); NEUTROPHILS % (AUTO) 80.8 % (40.0-77.0); NUCLEATED RED BLOOD CELLS 0.1 % (0.0-0.19); PLATELET COUNT (AUTO) 142 K/uL (130-400); RED BLOOD CELL COUNT(AUTO) 5.08 MIL/uL (4.50-6.20); RED CELL DISTRIBUTION WIDTH 18.1 % (11.0-15.5); WHITE BLOOD COUNT (AUTO) 7.6 K/uL (4.8-10.8)
[2018-11-28] MEDS: ZOSYN 3.375GM+NS 50ML 50 ML IV SCH ×2 (04:47→16:45)
[2018-11-28 08:16] LABS: HEPATITIS A ANTIBODY IGM Negative (Negative); HEPATITIS B CORE IGM Negative (Negative); HEPATITIS Bs ANTIGEN SCREEN P Negative (Negative)
--- NOTE | 2018-11-28 08:18 | NUR ---
PT REFUSES TO SIGN CONSENT, DR IS AWARE SINCE YESTERDAY ACCORDING TO THE NIGHT NURSE NEELAM, SPOKE TO THE PT AND HE SAID HE WAS WILLING TO GO DOWNSTAIRS WHEN ITS TIME FOR THE PROCEDURE, EXPLAINED TO THE PT HE CAN SIGN DOWNSTAIRS WHEN HE SEES THE DR BEFORE THE PROCEDURE SO WE WONT DELAY THE PROCEDURE. PT WAS OK SIGNING DOWNSTAIRS. EXPLAINED TO HIM HE HAS THE RIGHT TO REFUSE AT ALL TIMES.
[2018-11-28] MEDS: MIDODRINE HCL 5 MG TABLET PO SCH ×5 (09:00→19:59)
[2018-11-28] MEDS: ENOXAPARIN SODIUM 30 MG/0.3 ML SQ SCH (09:00)
[2018-11-28] MEDS: FAMOTIDINE/PF 20 MG/2 ML VIAL IV SCH (09:17)
[2018-11-28] MEDS ORDERED: PRAMIPEXOLE DI-HCL 0.25 MG TABLET PO PRN (09:45)
[2018-11-28] MEDS: OXYBUTYNIN CHLORIDE 5 MG TABLET PO SCH ×2 (12:01→19:49)
[2018-11-28] MEDS: SEVELAMER HCL 800 MG TABLET PO SCH ×2 (12:02→16:44)
[2018-11-28] MEDS: ALBUMIN (HUMAN) 25% 100 ML IV NR (12:04)
[2018-11-28] MEDS: SODIUM CHLORIDE 0.9% 1000ML 1,000 ML IV PRN ×2 (13:30→14:25)
[2018-11-28] MEDS ORDERED: MIDAZOLAM HCL 1 MG/ML 2ML VIAL ONE (13:41)
[2018-11-28] MEDS ORDERED: ONDANSETRON HCL 4 MG/2 ML VIAL ONE (13:42)
[2018-11-28] MEDS ORDERED: LIDOCAINE HCL 1% 20 ML VIAL ONE (13:51)
[2018-11-28] MEDS ORDERED: PROPOFOL 10 MG/ML 20ML VIAL IV ONE (13:53)
[2018-11-28] MEDS ORDERED: CEFAZOLIN SODIUM 1 GM VIAL ONE (14:03)
[2018-11-28] MEDS ORDERED: EPHEDRINE SULFATE 50 MG/ML AMPULE ONE (14:07)
[2018-11-28] MEDS ORDERED: BUPIVACAINE/PF 0.5% 30ML VIAL ONE (14:08)
[2018-11-28] MEDS ORDERED: VANCOMYCIN 1GM+NS 250ML 250 ML IV SCH ×2 (16:00→16:25)
[2018-11-28] MEDS ORDERED: HONEY 1 APPL/ML TUBE TP SCH (19:15)
[2018-11-28] MEDS: ATORVASTATIN CALCIUM 10 MG TABLET PO SCH (19:50)
[2018-11-28] MEDS: TRAMADOL HCL 50 MG TABLET PO PRN (22:57)
[2018-11-29] VITALS: BP 108/62
[2018-11-29] MEDS: ZOSYN 3.375GM+NS 50ML 50 ML IV SCH ×2 (03:25→17:07)
[2018-11-29 04:00] VITALS: BP 92/67
[2018-11-29 04:34] LABS: HEMATOCRIT 45.4 % (42-54); MEAN CORPUSCULAR HEMOGLOBIN 27.8 pg (27.0-33.0); MEAN CORPUSCULAR HGB CONC 32.1 g/dL (32.0-36.0); MEAN CORPUSCULAR VOLUME 86.5 fL (79-99); NUCLEATED RED BLOOD CELLS 0.1 % (0.0-0.19); PLATELET COUNT (AUTO) 146 K/uL (130-400); RED BLOOD CELL COUNT(AUTO) 5.24 MIL/uL (4.50-6.20); RED CELL DISTRIBUTION WIDTH 18.1 % (11.0-15.5); WHITE BLOOD COUNT (AUTO) 8.5 K/uL (4.8-10.8)
[2018-11-29 04:57] LABS: CREATININE 5.7 mg/dL (0.5-1.5); POTASSIUM 4.9 mmol/L (3.5-5.1)
[2018-11-29 08:00] VITALS: BP 117/75
[2018-11-29] MEDS: AMIODARONE HCL 200 MG TABLET PO SCH (09:00)
[2018-11-29] MEDS: MIDODRINE HCL 5 MG TABLET PO SCH ×6 (09:00→20:08)
[2018-11-29] MEDS: OXYBUTYNIN CHLORIDE 5 MG TABLET PO SCH ×3 (09:05→20:08)
[2018-11-29] MEDS: ENOXAPARIN SODIUM 30 MG/0.3 ML SQ SCH (09:05)
[2018-11-29] MEDS: SEVELAMER HCL 800 MG TABLET PO SCH ×2 (09:05→13:15)
[2018-11-29] MEDS: FAMOTIDINE/PF 20 MG/2 ML VIAL IV SCH (09:05)
[2018-11-29] MEDS: ASPIRIN 81 MG EC TAB PO SCH (09:06)
[2018-11-29 12:00] VITALS: BP 102/49
[2018-11-29] MEDS: HONEY 1 APPL/ML TUBE TP SCH (15:29)
[2018-11-29 16:00] VITALS: BP 103/65
[2018-11-29 20:00] VITALS: BP 95/55
[2018-11-29] MEDS: ATORVASTATIN CALCIUM 10 MG TABLET PO SCH (20:08)
[2018-11-29] MEDS: FAMOTIDINE 20MG TAB 20 MG TAB PO SCH (20:08)
--- NOTE | 2018-11-29 20:09 | NUR ---
vanco Vancomycin IV given by am nurse Angelo HASKINS
[2018-11-30 00:08] VITALS: BP 98/74
[2018-11-30] MEDS: ZOSYN 3.375GM+NS 50ML 50 ML IV SCH ×2 (02:51→16:04)
[2018-11-30] MEDS: TRAMADOL HCL 50 MG TABLET PO PRN (02:52)
[2018-11-30 04:00] VITALS: BP 101/56
[2018-11-30 06:59] LABS: HEMATOCRIT 45.9 % (42-54); MEAN CORPUSCULAR HEMOGLOBIN 27.1 pg (27.0-33.0); MEAN CORPUSCULAR HGB CONC 31.3 g/dL (32.0-36.0); MEAN CORPUSCULAR VOLUME 86.5 fL (79-99); NUCLEATED RED BLOOD CELLS 0.1 % (0.0-0.19); PLATELET COUNT (AUTO) 159 K/uL (130-400); RED BLOOD CELL COUNT(AUTO) 5.31 MIL/uL (4.50-6.20); WHITE BLOOD COUNT (AUTO) 8.8 K/uL (4.8-10.8)
[2018-11-30 07:10] LABS: CREATININE 5.1 mg/dL (0.5-1.5); POTASSIUM 4.4 mmol/L (3.5-5.1)
[2018-11-30 07:30] VITALS: BP 98/56
--- NOTE | 2018-11-30 08:00 | NUR ---
PT SITTING ON THE EDGE OF THE BED ,REVIEW PLAN OF CARE, LT ARM .ENCOURAGE TO KEEP ELEVATED UP ON PILLOW .LT ARM. MORE EDAMA NOTED THAN RT ARM.. CMS PRESENT .NOTED SUTURES IN PLACE TO HIS LT HAND PINKY FINGER . DARK COLOR BRUISE SITE. STRONG RADIAL PULSES NOTED . DENIES ANY DISCOMFORT OR PAIN, CALL LIGHT IN REACH..
[2018-11-30] MEDS: OXYBUTYNIN CHLORIDE 5 MG TABLET PO SCH ×3 (08:02→21:38)
[2018-11-30] MEDS: AMIODARONE HCL 200 MG TABLET PO SCH (08:02)
[2018-11-30] MEDS: MIDODRINE HCL 5 MG TABLET PO SCH ×6 (08:02→21:38)
[2018-11-30] MEDS: SEVELAMER HCL 800 MG TABLET PO SCH ×3 (08:02→16:48)
[2018-11-30] MEDS: FAMOTIDINE 20MG TAB 20 MG TAB PO SCH (08:03)
[2018-11-30] MEDS: ASPIRIN 81 MG EC TAB PO SCH (08:03)
[2018-11-30] MEDS: ENOXAPARIN SODIUM 30 MG/0.3 ML SQ SCH (08:04)
[2018-11-30 12:00] VITALS: BP 108/70
[2018-11-30 16:00] VITALS: BP 108/82
[2018-11-30] MEDS: HONEY 1 APPL/ML TUBE TP SCH (16:04)
[2018-11-30 20:00] VITALS: BP 105/61
[2018-11-30] MEDS: ATORVASTATIN CALCIUM 10 MG TABLET PO SCH (21:38)
[2018-12-01] VITALS: BP 98/74
[2018-12-01 04:00] VITALS: BP 110/58
[2018-12-01 04:07] LABS: MEAN CORPUSCULAR HEMOGLOBIN 27.8 pg (27.0-33.0); MEAN CORPUSCULAR HGB CONC 31.9 g/dL (32.0-36.0); MEAN CORPUSCULAR VOLUME 87.2 fL (79-99); PLATELET COUNT (AUTO) 147 K/uL (130-400); RED BLOOD CELL COUNT(AUTO) 5.74 MIL/uL (4.50-6.20); RED CELL DISTRIBUTION WIDTH 18.1 % (11.0-15.5)
[2018-12-01] MEDS: ZOSYN 3.375GM+NS 50ML 50 ML IV SCH ×2 (04:17→15:45)
[2018-12-01 04:18] LABS: CREATININE 5.8 mg/dL (0.5-1.5); POTASSIUM 4.3 mmol/L (3.5-5.1)
[2018-12-01 08:02] VITALS: BP 87/64
[2018-12-01] MEDS: FAMOTIDINE 20MG TAB 20 MG TAB PO SCH (08:50)
[2018-12-01] MEDS: MIDODRINE HCL 5 MG TABLET PO SCH ×4 (08:51→15:45)
[2018-12-01] MEDS: ASPIRIN 81 MG EC TAB PO SCH (08:51)
[2018-12-01] MEDS: SEVELAMER HCL 800 MG TABLET PO SCH ×3 (08:51→17:35)
[2018-12-01] MEDS: OXYBUTYNIN CHLORIDE 5 MG TABLET PO SCH ×2 (08:51→15:45)
[2018-12-01] MEDS: AMIODARONE HCL 200 MG TABLET PO SCH (08:51)
[2018-12-01] MEDS: ENOXAPARIN SODIUM 30 MG/0.3 ML SQ SCH (08:52)
[2018-12-01 11:23] VITALS: BP 94/47
[2018-12-01 16:26] VITALS: BP 107/84
[2018-12-01] MEDS: HONEY 1 APPL/ML TUBE TP SCH (17:36)
--- NOTE | 2018-12-01 18:55 | NUR ---
CLEARANCE FROM [facility] ,NO ANTIBOTICS NEEDED FOR DISCHARGE , DR. SYKES . PT TO GO TO HIS DIALYSIS TX , [facility], SAT. AND PT TO SEE HIS PRIVATE DRBarbara IN 3 DAYS ,AND DR. ORTEGA FOR FOLLOWUP CARE, AND WOUND PICTURES DONE , AND WOUND CARE PROTOCOL ORDERS GIVEN TO PT. FOR CONT CARE AT HOME, AT THE BEDSIDE , REVIEW EDUCATION, OF CARE, SL TO HIS RFA, DC WITH NO HEMATOMA NOTED . PT WILL BE GETTING HIS DIALYSIS TREATMENT . ON SATURDAY , 12-02-18 AT THE DIALYSIS CENTER , ,
== END 2018-12-01 18:45 | disposition home or self-care (01) | DRG 255 ==
LOC: EDH 13:53 → EDHIP 18:03 → 3AH 19:52 → 3DH 11-27 11:58
PROVIDERS: ADMIT Internal Medicine; ATTEND Internal Medicine
PROC: 5A1D70Z Performance of Urinary Filtration, Intermittent, Less than 6 Hours Per Day (ICD-10-PCS; 2018-11-27)
PROC: 0X6W0Z1 Detachment at Left Little Finger, High, Open Approach (ICD-10-PCS; principal; 2018-11-28 13:45)
PROC: 5A1D70Z Performance of Urinary Filtration, Intermittent, Less than 6 Hours Per Day (ICD-10-PCS; 2018-11-29)
DX: T82.898A Other specified complication of vascular prosthetic devices, implants and grafts, initial encounter (principal); N18.6 End stage renal disease; E11.52 Type 2 diabetes mellitus with diabetic peripheral angiopathy with gangrene; I96 Gangrene, not elsewhere classified; L03.114 Cellulitis of left upper limb; I13.2 Hypertensive heart and chronic kidney disease with heart failure and with stage 5 chronic kidney disease, or end stage renal disease; R18.8 Other ascites; M86.142 Other acute osteomyelitis, left hand; Y83.2 Surgical operation with anastomosis, bypass or graft as the cause of abnormal reaction of the patient, or of later complication, without mention of misadventure at the time of the procedure; Y92.89 Other specified places as the place of occurrence of the external cause; E11.22 Type 2 diabetes mellitus with diabetic chronic kidney disease; E11.69 Type 2 diabetes mellitus with other specified complication; D64.9 Anemia, unspecified; E66.9 Obesity, unspecified; E78.2 Mixed hyperlipidemia; I25.10 Atherosclerotic heart disease of native coronary artery without angina pectoris; I25.5 Ischemic cardiomyopathy; I50.9 Heart failure, unspecified; K76.9 Liver disease, unspecified; Z99.2 Dependence on renal dialysis; Z82.0 Family history of epilepsy and other diseases of the nervous system; Z82.49 Family history of ischemic heart disease and other diseases of the circulatory system; Z82.5 Family history of asthma and other chronic lower respiratory diseases; Z83.3 Family history of diabetes mellitus; Z87.891 Personal history of nicotine dependence; Z89.512 Acquired absence of left leg below knee; Z95.1 Presence of aortocoronary bypass graft; Z95.810 Presence of automatic (implantable) cardiac defibrillator; Z87.01 Personal history of pneumonia (recurrent); Z79.82 Long term (current) use of aspirin; Z68.32 Body mass index [BMI] 32.0-32.9, adult
CPT/HCPCS: 36415; 80048; 80074; 80202; 82948; 83036; 84100; 84443; 85025; 85027; 87040; 88305; 90935; G0378; J0690; J1650; J2250; J2405; J2543; J2704; J3370; J3490; J7030; J7040; P9046

== ENCOUNTER → 2018-12-02 | Outpatient (CLI) | payer MEDICARE ==
[~2018-12-02] MED LIST changes: +LIDOCAINE/PRILOCAINE CREAM 5GM TUBE TP ONE; +MIDO5TAB PO
[2018-12-02 15:39] VITALS: BP 116/76
== END | disposition home or self-care (01) ==
LOC: WHH 13:00
PROVIDERS: ATTEND Family Medicine
DX: T87.89 Other complications of amputation stump (principal); E11.621 Type 2 diabetes mellitus with foot ulcer; L97.412 Non-pressure chronic ulcer of right heel and midfoot with fat layer exposed; E11.622 Type 2 diabetes mellitus with other skin ulcer; L98.491 Non-pressure chronic ulcer of skin of other sites limited to breakdown of skin; S61.202D Unspecified open wound of right middle finger without damage to nail, subsequent encounter; E11.51 Type 2 diabetes mellitus with diabetic peripheral angiopathy without gangrene; E11.22 Type 2 diabetes mellitus with diabetic chronic kidney disease; I13.2 Hypertensive heart and chronic kidney disease with heart failure and with stage 5 chronic kidney disease, or end stage renal disease; N18.6 End stage renal disease; I50.9 Heart failure, unspecified; E11.69 Type 2 diabetes mellitus with other specified complication; M86.8X7 Other osteomyelitis, ankle and foot; M86.652 Other chronic osteomyelitis, left thigh; E11.40 Type 2 diabetes mellitus with diabetic neuropathy, unspecified; E11.21 Type 2 diabetes mellitus with diabetic nephropathy; I25.10 Atherosclerotic heart disease of native coronary artery without angina pectoris; I87.2 Venous insufficiency (chronic) (peripheral); I25.2 Old myocardial infarction; I48.91 Unspecified atrial fibrillation; I89.0 Lymphedema, not elsewhere classified; E78.5 Hyperlipidemia, unspecified; E66.01 Morbid (severe) obesity due to excess calories; M19.071 Primary osteoarthritis, right ankle and foot; Z95.5 Presence of coronary angioplasty implant and graft; Z89.512 Acquired absence of left leg below knee; Z99.2 Dependence on renal dialysis; Z95.810 Presence of automatic (implantable) cardiac defibrillator; Z89.511 Acquired absence of right leg below knee; Z88.5 Allergy status to narcotic agent; Z79.4 Long term (current) use of insulin; Z79.899 Other long term (current) drug therapy; Z87.891 Personal history of nicotine dependence; Z95.1 Presence of aortocoronary bypass graft; X58.XXXD Exposure to other specified factors, subsequent encounter; Y83.5 Amputation of limb(s) as the cause of abnormal reaction of the patient, or of later complication, without mention of misadventure at the time of the procedure
CPT/HCPCS: 11042; A6213; J3490

== ENCOUNTER → 2018-12-09 | Outpatient (CLI) | payer MEDICARE ==
[2018-12-09 14:50] VITALS: BP 82/47
== END | disposition home or self-care (01) ==
LOC: WHH 13:00
PROVIDERS: ATTEND Family Medicine
DX: T87.89 Other complications of amputation stump (principal); E11.621 Type 2 diabetes mellitus with foot ulcer; L97.412 Non-pressure chronic ulcer of right heel and midfoot with fat layer exposed; E11.622 Type 2 diabetes mellitus with other skin ulcer; S61.202D Unspecified open wound of right middle finger without damage to nail, subsequent encounter; L98.491 Non-pressure chronic ulcer of skin of other sites limited to breakdown of skin; E11.51 Type 2 diabetes mellitus with diabetic peripheral angiopathy without gangrene; E11.22 Type 2 diabetes mellitus with diabetic chronic kidney disease; I13.2 Hypertensive heart and chronic kidney disease with heart failure and with stage 5 chronic kidney disease, or end stage renal disease; N18.6 End stage renal disease; I50.9 Heart failure, unspecified; E11.69 Type 2 diabetes mellitus with other specified complication; M86.8X7 Other osteomyelitis, ankle and foot; E11.40 Type 2 diabetes mellitus with diabetic neuropathy, unspecified; E11.21 Type 2 diabetes mellitus with diabetic nephropathy; I25.10 Atherosclerotic heart disease of native coronary artery without angina pectoris; I87.2 Venous insufficiency (chronic) (peripheral); I25.2 Old myocardial infarction; I48.91 Unspecified atrial fibrillation; I89.0 Lymphedema, not elsewhere classified; E78.5 Hyperlipidemia, unspecified; E66.01 Morbid (severe) obesity due to excess calories; M19.071 Primary osteoarthritis, right ankle and foot; Z95.5 Presence of coronary angioplasty implant and graft; Z89.512 Acquired absence of left leg below knee; Z88.5 Allergy status to narcotic agent; Z79.4 Long term (current) use of insulin; Z79.899 Other long term (current) drug therapy; Z89.511 Acquired absence of right leg below knee; Z87.891 Personal history of nicotine dependence; Z95.1 Presence of aortocoronary bypass graft; X58.XXXD Exposure to other specified factors, subsequent encounter; Y83.5 Amputation of limb(s) as the cause of abnormal reaction of the patient, or of later complication, without mention of misadventure at the time of the procedure
CPT/HCPCS: 11042; A6213; J3490

== ENCOUNTER → 2018-12-23 | Outpatient (CLI) | payer MEDICARE ==
[~2018-12-23] MED LIST changes: -LIDOCAINE/PRILOCAINE CREAM 5GM TUBE TP ONE
[2018-12-23 15:50] VITALS: BP 87/33
== END | disposition home or self-care (01) ==
LOC: WHH 13:00
PROVIDERS: ATTEND Family Medicine
DX: T87.89 Other complications of amputation stump (principal); E11.621 Type 2 diabetes mellitus with foot ulcer; L97.412 Non-pressure chronic ulcer of right heel and midfoot with fat layer exposed; E11.622 Type 2 diabetes mellitus with other skin ulcer; L98.496 Non-pressure chronic ulcer of skin of other sites with bone involvement without evidence of necrosis; E11.52 Type 2 diabetes mellitus with diabetic peripheral angiopathy with gangrene; I96 Gangrene, not elsewhere classified; E11.22 Type 2 diabetes mellitus with diabetic chronic kidney disease; I13.2 Hypertensive heart and chronic kidney disease with heart failure and with stage 5 chronic kidney disease, or end stage renal disease; N18.6 End stage renal disease; I50.9 Heart failure, unspecified; E11.69 Type 2 diabetes mellitus with other specified complication; M86.8X7 Other osteomyelitis, ankle and foot; E11.40 Type 2 diabetes mellitus with diabetic neuropathy, unspecified; E11.21 Type 2 diabetes mellitus with diabetic nephropathy; I25.10 Atherosclerotic heart disease of native coronary artery without angina pectoris; I87.2 Venous insufficiency (chronic) (peripheral); I25.2 Old myocardial infarction; I48.91 Unspecified atrial fibrillation; I89.0 Lymphedema, not elsewhere classified; E78.2 Mixed hyperlipidemia; E78.5 Hyperlipidemia, unspecified; E66.01 Morbid (severe) obesity due to excess calories; M19.071 Primary osteoarthritis, right ankle and foot; Z95.5 Presence of coronary angioplasty implant and graft; Z89.512 Acquired absence of left leg below knee; Z88.5 Allergy status to narcotic agent; Z79.4 Long term (current) use of insulin; Z79.899 Other long term (current) drug therapy; Z89.511 Acquired absence of right leg below knee; Z87.891 Personal history of nicotine dependence; Z95.1 Presence of aortocoronary bypass graft; Z99.2 Dependence on renal dialysis; Y83.5 Amputation of limb(s) as the cause of abnormal reaction of the patient, or of later complication, without mention of misadventure at the time of the procedure
CPT/HCPCS: 11042; A6213

== ENCOUNTER → 2018-12-30 | Outpatient (CLI) | payer MEDICARE ==
[~2018-12-30] MED LIST changes: +LIDOCAINE/PRILOCAINE CREAM 5GM TUBE TP ONE
[2018-12-30 17:38] VITALS: BP 88/44
== END | disposition home or self-care (01) ==
LOC: WHH 13:00
PROVIDERS: ATTEND Family Medicine
DX: T87.89 Other complications of amputation stump (principal); E11.621 Type 2 diabetes mellitus with foot ulcer; L97.412 Non-pressure chronic ulcer of right heel and midfoot with fat layer exposed; E11.622 Type 2 diabetes mellitus with other skin ulcer; L98.492 Non-pressure chronic ulcer of skin of other sites with fat layer exposed; E11.52 Type 2 diabetes mellitus with diabetic peripheral angiopathy with gangrene; I96 Gangrene, not elsewhere classified; E11.22 Type 2 diabetes mellitus with diabetic chronic kidney disease; I13.2 Hypertensive heart and chronic kidney disease with heart failure and with stage 5 chronic kidney disease, or end stage renal disease; N18.6 End stage renal disease; I50.9 Heart failure, unspecified; E11.69 Type 2 diabetes mellitus with other specified complication; M86.8X7 Other osteomyelitis, ankle and foot; E11.40 Type 2 diabetes mellitus with diabetic neuropathy, unspecified; E11.21 Type 2 diabetes mellitus with diabetic nephropathy; I25.10 Atherosclerotic heart disease of native coronary artery without angina pectoris; I87.2 Venous insufficiency (chronic) (peripheral); I25.2 Old myocardial infarction; I48.91 Unspecified atrial fibrillation; I89.0 Lymphedema, not elsewhere classified; E78.2 Mixed hyperlipidemia; E78.5 Hyperlipidemia, unspecified; E66.01 Morbid (severe) obesity due to excess calories; M19.071 Primary osteoarthritis, right ankle and foot; Z95.5 Presence of coronary angioplasty implant and graft; Z89.512 Acquired absence of left leg below knee; Z88.5 Allergy status to narcotic agent; Z79.4 Long term (current) use of insulin; Z79.899 Other long term (current) drug therapy; Z89.511 Acquired absence of right leg below knee; Z87.891 Personal history of nicotine dependence; Z95.1 Presence of aortocoronary bypass graft; Z99.2 Dependence on renal dialysis; Y83.5 Amputation of limb(s) as the cause of abnormal reaction of the patient, or of later complication, without mention of misadventure at the time of the procedure
CPT/HCPCS: 11042; A6197; J3490

== ENCOUNTER → 2019-01-06 | Outpatient (CLI) | payer MEDICARE ==
[2019-01-06 14:53] VITALS: BP 84/42
== END | disposition home or self-care (01) ==
LOC: WHH 13:00
PROVIDERS: ATTEND Family Medicine
DX: T87.89 Other complications of amputation stump (principal); E11.621 Type 2 diabetes mellitus with foot ulcer; L97.412 Non-pressure chronic ulcer of right heel and midfoot with fat layer exposed; E11.622 Type 2 diabetes mellitus with other skin ulcer; L98.492 Non-pressure chronic ulcer of skin of other sites with fat layer exposed; E11.52 Type 2 diabetes mellitus with diabetic peripheral angiopathy with gangrene; I96 Gangrene, not elsewhere classified; E11.22 Type 2 diabetes mellitus with diabetic chronic kidney disease; I13.2 Hypertensive heart and chronic kidney disease with heart failure and with stage 5 chronic kidney disease, or end stage renal disease; N18.6 End stage renal disease; I50.9 Heart failure, unspecified; E11.69 Type 2 diabetes mellitus with other specified complication; M86.8X7 Other osteomyelitis, ankle and foot; E11.40 Type 2 diabetes mellitus with diabetic neuropathy, unspecified; E11.21 Type 2 diabetes mellitus with diabetic nephropathy; I25.10 Atherosclerotic heart disease of native coronary artery without angina pectoris; I87.2 Venous insufficiency (chronic) (peripheral); I25.2 Old myocardial infarction; I48.91 Unspecified atrial fibrillation; I89.0 Lymphedema, not elsewhere classified; E78.2 Mixed hyperlipidemia; E78.5 Hyperlipidemia, unspecified; E66.01 Morbid (severe) obesity due to excess calories; M19.071 Primary osteoarthritis, right ankle and foot; Z95.5 Presence of coronary angioplasty implant and graft; Z89.512 Acquired absence of left leg below knee; Z88.5 Allergy status to narcotic agent; Z79.4 Long term (current) use of insulin; Z79.899 Other long term (current) drug therapy; Z89.511 Acquired absence of right leg below knee; Z87.891 Personal history of nicotine dependence; Z95.1 Presence of aortocoronary bypass graft; Z99.2 Dependence on renal dialysis; Y83.5 Amputation of limb(s) as the cause of abnormal reaction of the patient, or of later complication, without mention of misadventure at the time of the procedure
CPT/HCPCS: 11042; A6197; J3490

== ENCOUNTER → 2019-01-13 | Outpatient (CLI) | payer MEDICARE ==
[2019-01-13 15:13] VITALS: BP 102/42
== END | disposition home or self-care (01) ==
LOC: WHH 13:00
PROVIDERS: ATTEND Family Medicine
DX: E11.622 Type 2 diabetes mellitus with other skin ulcer (principal); L98.492 Non-pressure chronic ulcer of skin of other sites with fat layer exposed; E11.621 Type 2 diabetes mellitus with foot ulcer; L97.412 Non-pressure chronic ulcer of right heel and midfoot with fat layer exposed; E11.52 Type 2 diabetes mellitus with diabetic peripheral angiopathy with gangrene; I96 Gangrene, not elsewhere classified; E11.22 Type 2 diabetes mellitus with diabetic chronic kidney disease; I13.2 Hypertensive heart and chronic kidney disease with heart failure and with stage 5 chronic kidney disease, or end stage renal disease; N18.6 End stage renal disease; I50.9 Heart failure, unspecified; E11.69 Type 2 diabetes mellitus with other specified complication; M86.8X7 Other osteomyelitis, ankle and foot; E11.40 Type 2 diabetes mellitus with diabetic neuropathy, unspecified; E11.21 Type 2 diabetes mellitus with diabetic nephropathy; I25.10 Atherosclerotic heart disease of native coronary artery without angina pectoris; I87.2 Venous insufficiency (chronic) (peripheral); I25.2 Old myocardial infarction; I48.91 Unspecified atrial fibrillation; I89.0 Lymphedema, not elsewhere classified; E78.2 Mixed hyperlipidemia; E78.5 Hyperlipidemia, unspecified; E66.01 Morbid (severe) obesity due to excess calories; M19.071 Primary osteoarthritis, right ankle and foot; Z95.5 Presence of coronary angioplasty implant and graft; Z89.512 Acquired absence of left leg below knee; Z88.5 Allergy status to narcotic agent; Z79.4 Long term (current) use of insulin; Z79.899 Other long term (current) drug therapy; Z89.511 Acquired absence of right leg below knee; Z87.891 Personal history of nicotine dependence; Z95.1 Presence of aortocoronary bypass graft; Z99.2 Dependence on renal dialysis; Z89.022 Acquired absence of left finger(s)
CPT/HCPCS: 11042; A6196; J3490

== ENCOUNTER → 2019-01-20 | Outpatient (CLI) | payer MEDICARE ==
[~2019-01-20] MED LIST changes: -LIDOCAINE/PRILOCAINE CREAM 5GM TUBE TP ONE
[2019-01-20 16:17] VITALS: BP 93/72
== END | disposition home or self-care (01) ==
LOC: WHH 14:20
PROVIDERS: ATTEND Family Medicine
DX: E11.621 Type 2 diabetes mellitus with foot ulcer (principal); L97.412 Non-pressure chronic ulcer of right heel and midfoot with fat layer exposed; E11.622 Type 2 diabetes mellitus with other skin ulcer; L98.491 Non-pressure chronic ulcer of skin of other sites limited to breakdown of skin; S61.202D Unspecified open wound of right middle finger without damage to nail, subsequent encounter; E11.52 Type 2 diabetes mellitus with diabetic peripheral angiopathy with gangrene; I96 Gangrene, not elsewhere classified; E11.22 Type 2 diabetes mellitus with diabetic chronic kidney disease; I13.2 Hypertensive heart and chronic kidney disease with heart failure and with stage 5 chronic kidney disease, or end stage renal disease; N18.6 End stage renal disease; I50.9 Heart failure, unspecified; E11.69 Type 2 diabetes mellitus with other specified complication; M86.8X7 Other osteomyelitis, ankle and foot; E11.40 Type 2 diabetes mellitus with diabetic neuropathy, unspecified; E11.21 Type 2 diabetes mellitus with diabetic nephropathy; I25.10 Atherosclerotic heart disease of native coronary artery without angina pectoris; I87.2 Venous insufficiency (chronic) (peripheral); I25.2 Old myocardial infarction; I48.91 Unspecified atrial fibrillation; I89.0 Lymphedema, not elsewhere classified; E78.2 Mixed hyperlipidemia; E66.01 Morbid (severe) obesity due to excess calories; M19.071 Primary osteoarthritis, right ankle and foot; Z95.5 Presence of coronary angioplasty implant and graft; Z89.512 Acquired absence of left leg below knee; Z89.511 Acquired absence of right leg below knee; Z88.5 Allergy status to narcotic agent; Z79.4 Long term (current) use of insulin; Z79.899 Other long term (current) drug therapy; Z87.891 Personal history of nicotine dependence; Z95.1 Presence of aortocoronary bypass graft; Z99.2 Dependence on renal dialysis; Z89.022 Acquired absence of left finger(s); X58.XXXD Exposure to other specified factors, subsequent encounter
CPT/HCPCS: 11042; A6196

== ENCOUNTER → 2019-01-27 | Outpatient (CLI) | payer MEDICARE ==
[~2019-01-27] MED LIST changes: +HONEY 1 APPL/ML TUBE TP ONE; +TRAZ-185 PO
[2019-01-27 15:52] VITALS: BP 90/30
== END | disposition home or self-care (01) ==
LOC: WHH 13:00
PROVIDERS: ATTEND Family Medicine
DX: E11.621 Type 2 diabetes mellitus with foot ulcer (principal); L97.412 Non-pressure chronic ulcer of right heel and midfoot with fat layer exposed; E11.622 Type 2 diabetes mellitus with other skin ulcer; L98.491 Non-pressure chronic ulcer of skin of other sites limited to breakdown of skin; L84 Corns and callosities; S61.202D Unspecified open wound of right middle finger without damage to nail, subsequent encounter; E11.52 Type 2 diabetes mellitus with diabetic peripheral angiopathy with gangrene; I96 Gangrene, not elsewhere classified; E11.22 Type 2 diabetes mellitus with diabetic chronic kidney disease; I13.2 Hypertensive heart and chronic kidney disease with heart failure and with stage 5 chronic kidney disease, or end stage renal disease; N18.6 End stage renal disease; I50.9 Heart failure, unspecified; E11.69 Type 2 diabetes mellitus with other specified complication; M86.8X7 Other osteomyelitis, ankle and foot; E11.40 Type 2 diabetes mellitus with diabetic neuropathy, unspecified; E11.21 Type 2 diabetes mellitus with diabetic nephropathy; I25.10 Atherosclerotic heart disease of native coronary artery without angina pectoris; I87.2 Venous insufficiency (chronic) (peripheral); I25.2 Old myocardial infarction; I48.91 Unspecified atrial fibrillation; I89.0 Lymphedema, not elsewhere classified; E78.2 Mixed hyperlipidemia; E66.01 Morbid (severe) obesity due to excess calories; M19.071 Primary osteoarthritis, right ankle and foot; Z95.5 Presence of coronary angioplasty implant and graft; Z89.512 Acquired absence of left leg below knee; Z89.511 Acquired absence of right leg below knee; Z88.5 Allergy status to narcotic agent; Z79.4 Long term (current) use of insulin; Z79.899 Other long term (current) drug therapy; Z87.891 Personal history of nicotine dependence; Z95.1 Presence of aortocoronary bypass graft; Z99.2 Dependence on renal dialysis; Z89.022 Acquired absence of left finger(s); X58.XXXD Exposure to other specified factors, subsequent encounter
CPT/HCPCS: 11042; 87070; 87077 ×2; 87186 ×2; A6196